=== PATIENT | male | born 1955 | race Caucasian/White ===

== ENCOUNTER 2016-09-19 11:02 | Inpatient (IN) | payer OTHER ==
[2016-09-19] VITALS (20 sets, daily range): BP systolic 57–143; BP diastolic 40–83; PULSE 69–107; RESP 16–22; TEMP 97.3–98.9; O2SAT 85–100
[~2016-09-19] VITALS: Ht 185.4 cm; Wt 92.9 kg
[2016-09-19] MEDS ORDERED: PRED10PA PO (11:30)
[2016-09-19] MEDS ORDERED: LEVA500T PO (11:30)
[2016-09-19] MEDS ORDERED: METO50TA PO (11:30)
[2016-09-19] MEDS ORDERED: ASPI1TAB69 PO (11:30)
[2016-09-19] MEDS ORDERED: AMLO5TAB2 PO (11:30)
--- NOTE | 2016-09-19 11:59 | PD ---
HPI Chief Complaint: Skin Problem Time Seen by Provider: 11:33 Travel History International Travel<30 days: No Contact w/Intl Traveler<30days: No Traveled to known affect area: No History of Present Illness HPI This 61-year-old male says he has been feeling nauseated since Friday. He's been feeling hot and cold and had no appetite. He has had hiccups. He has history of high blood pressure and atrial fibrillation. He is not on blood thinners. About 3 days ago he noted a swelling develop in the right buttock. IT has become larger and more painful. He does drink on a regular basis. He normally drinks about 4 beers a day but has not had any alcohol Friday. He also has not smoked since Friday. He called his doctor on Friday and was started on prednisone and Levaquin. He says he is feeling extremely weak PFSH Past Medical History Hx Anticoagulant Therapy: Yes (81MG ASA) Atrial Fibrillation: Yes COPD: Yes Hypertension: Yes Respiratory: Yes (COPD) Influenza Vaccination: No Past Surgical History Hysterectomy: Yes (HTN; A-FIB) Social History Alcohol Use: Yes (4 BEERS DAILY) Tobacco Use: Yes (2PPD) Substance Use: No Allergies-Medications (Allergen,Severity, Reaction): Coded Allergies: No Known Allergies (Unverified , 09/19/16) Reported Meds & Prescriptions Reported Meds & Active Scripts Active Reported Prednisone (21) 10 mg tab Dose Pack (Prednisone) 10 Mg Pack 10 Mg PO DIRECTED Levaquin (Levofloxacin) 500 Mg Tab 500 Mg PO DAILY Metoprolol Tartrate 50 Mg Tab 50 Mg PO BID Amlodipine (Amlodipine Besylate) 5 Mg Tab 5 Mg PO DAILY Aspirin 81 Mg Tabdr 81 Mg PO DAILY Review of Systems General / Constitutional: Positive: Fever, Chills HENT: No: Headaches Cardiovascular: No: Chest Pain or Discomfort, Palpitations Respiratory: No: Cough Gastrointestinal: Positive: Loss of Appetite Genitourinary: No: Urgency Musculoskeletal: No: Myalgias Skin: Positive Rash, Positive Lumps Neurologic: Positive: Weakness Physical Exam Narrative GENERAL: Well-developed male SKIN: Warm and dry. HEAD: Atraumatic. Normocephalic. EYES: Pupils equal and round. No scleral icterus. No injection or drainage. ENT: No nasal bleeding or discharge. Mucous membranes pink and moist. NECK: Trachea midline. No JVD. CARDIOVASCULAR: Regular rate and rhythm. No murmur appreciated. RESPIRATORY: No accessory muscle use. Clear to auscultation. Breath sounds equal bilaterally. GASTROINTESTINAL: Abdomen soft, non-tender, nondistended. Hepatic and splenic margins not palpable. There is a large area of erythema on the right buttock extending to the anal verge. Digital exam shows brown guaiac negative stool MUSCULOSKELETAL: No obvious deformities. No clubbing. No cyanosis. No edema. NEUROLOGICAL: Awake and alert. No obvious cranial nerve deficits. Motor grossly within normal limits. Normal speech. PSYCHIATRIC: Appropriate mood and affect; insight and judgment normal. Data Data Last Documented VS Vital Signs Date Time Temp Pulse Resp B/P Pulse Ox O2 Delivery O2 Flow Rate FiO2 09/19/16 14:13 98.3 91 20 69/43 98 Nasal Cannula 2 Orders Complete Blood Count With Diff (09/19/16 11:47) Comprehensive Metabolic Panel (09/19/16 11:47) Urinalysis - C+S If Indicated (09/19/16 11:47) Wound Culture And Gram Stain (09/19/16 11:47) Ct Abd/Pel W Iv Contrast(Rout) (09/19/16 11:47) Sodium Chlor 0.9% 1000 Ml Inj (Ns 1000 M (09/19/16 12:00) Ondansetron Inj (Zofran Inj) (09/19/16 12:00) Hydromorphone Pf Inj (Dilaudid Pf Inj) (09/19/16 12:00) Piperacil-Tazo 4.5 Gm Premix (Zosyn 4.5 (09/19/16 12:00) Blood Culture (09/19/16 11:47) Lactic Acid Sepsis Protocol (09/19/16 11:47) Lidocai-Epi 2%-1:100,000 Inj (Xylocaine- (09/19/16 12:00) Sodium Chlor 0.9% 1000 Ml Inj (Ns 1000 M (09/19/16 12:45) Metronidazole 500 Mg Inj (Flagyl 500 Mg (09/19/16 12:45) Ns + Kcl 40 Meq Inj (Ns + Kcl 40 Meq Inj (09/19/16 13:00) Iohexol 350 Inj (Omnipaque 350 Inj) (09/19/16 13:15) Clindamycin Inj (Cleocin Inj) (09/19/16 14:00) Sodium Chlor 0.9% 1000 Ml Inj (Ns 1000 M (09/19/16 14:00) Prothrombin Time / Inr (Pt) (09/19/16 14:09) Act Partial Throm Time (Ptt) (09/19/16 14:09) Consult Infectious Disease (09/19/16 ) Consult Colorectal Surgery (09/19/16 ) Norepinephrine-Dextrose Drip (Levophed-D (09/19/16 14:30) Admit Order (Ed Use Only) (09/19/16 14:24) Labs Laboratory Tests Test 09/19/16 12:00 White Blood Count 12.2 TH/MM3 Red Blood Count 4.81 MIL/MM3 Hemoglobin 14.6 GM/DL Hematocrit 43.9 % Mean Corpuscular Volume 91.2 FL Mean Corpuscular Hemoglobin 30.3 PG Mean Corpuscular Hemoglobin 33.2 % Concent Red Cell Distribution Width 12.5 % Platelet Count 203 TH/MM3 Mean Platelet Volume 8.4 FL Neutrophils (%) (Auto) 55.8 % Lymphocytes (%) (Auto) 5.7 % Monocytes (%) (Auto) 34.3 % Eosinophils (%) (Auto) 0.1 % Basophils (%) (Auto) 4.1 % Neutrophils # (Auto) 6.8 TH/MM3 Lymphocytes # (Auto) 0.7 TH/MM3 Monocytes # (Auto) 4.2 TH/MM3 Eosinophils # (Auto) 0.0 TH/MM3 Basophils # (Auto) 0.5 TH/MM3 CBC Comment AUTO DIFF Differential Total Cells 100 Counted Neutrophils % (Manual) 76 % Band Neutrophils % 8 % Lymphocytes % 5 % Monocytes % 11 % Neutrophils # (Manual) 10.2 TH/MM3 Differential Comment FINAL DIFF MANUAL Platelet Estimate NORMAL Platelet Morphology Comment NORMAL Sodium Level 138 MEQ/L Potassium Level 3.3 MEQ/L Chloride Level 101 MEQ/L Carbon Dioxide Level 26.1 MEQ/L Anion Gap 11 MEQ/L Blood Urea Nitrogen 22 MG/DL Creatinine 1.00 MG/DL Estimat Glomerular Filtration 76 ML/MIN Rate Random Glucose 150 MG/DL Lactic Acid Level 2.5 mmol/L Calcium Level 8.9 MG/DL Total Bilirubin 0.4 MG/DL Aspartate Amino Transf 115 U/L (AST/SGOT) Alanine Aminotransferase 81 U/L (ALT/SGPT) Alkaline Phosphatase 85 U/L Total Protein 6.8 GM/DL Albumin 1.9 GM/DL [facility] Medical Decision Making Medical Screen Exam Complete: Yes Emergency Medical Condition: Yes Medical Record Reviewed: Yes Differential Diagnosis Differential includes perirectal abscess, ischio rectal abscess Narrative Course White count is elevated at 12,000. His lactate level is 2.5. Case was discussed with Dr. Millan. An I&D was performed and a large amount of purulent material obtained. Antibiotics have been initiated. CT was obtained after the I&D was done. There is extensive induration soft tissue swelling and subcutaneous emphysema in the right perirectal posterior perineal region concerning for abscess and necrotizing fasciitis. No significant fluid collection. After the I&D was performed the patient dropped his blood pressure to 60/40. Aggressive IV fluids have been initiated. After 3 L his blood pressure remains low) 70/50. He'll be transferred to [place] intensive care emergently Procedures Procedure Narrative Verbal consent was obtained for incision and drainage. An area of the buttock was anesthetized with lidocaine with adrenaline. A 1.5 cm incision was made and a large amount of serosanguineous fluid was obtained. As much pus as possible was expressed from the wound. Wound was packed with a bottle of half- inch iodoform gauze. The drainage was foul-smelling. The patient tolerated the procedure well. After the patient's blood pressure dropped and he did not respond to initial fluid therapy and it was felt a central line will be necessary in the event that he needed pressors. This was discussed with the patient and he has given verbal and written consent. The right internal jugular area was cleaned thoroughly. Using gown and draped AND sterile technique a double-lumen central line was inserted in the right internal jugular vein. The patient tolerated the procedure well Diagnosis Primary Impression: Perirectal abscess Additional Impression: Sepsis Qualified Code: A41.9 - Sepsis, due to unspecified organism Admitting Information Admitting Physician Requests: it Jake Baron MD Sep 19, 2016 11:59
[2016-09-19] MEDS ORDERED: PIPERACIL-TAZO 4.5 GM PREMIX 100 ML IV ONE (12:00)
[2016-09-19] MEDS ORDERED: NOREPINEPHRINE-DEXTROSE DRIP 4 MG/250 ML BAG IV ONE (12:00)
[2016-09-19] MEDS ORDERED: LIDOCAINE 2%/EPINEPHrine 1:100,000 30ML MDV INFIL ONE (12:00)
[2016-09-19] MEDS ORDERED: HYDROmorphone HCL PF 1 MG/ML VIAL IV PUSH ONE (12:00)
[2016-09-19] MEDS ORDERED: SODIUM CHLOR 0.9% 1000 ML INJ 1,000 ML IV ONE ×4 (12:00→15:30)
[2016-09-19] MEDS ORDERED: PROPOFOL 200 MG/20 ML AMP IV ONE (12:00)
[2016-09-19] MEDS ORDERED: ONDANSETRON HCL 4 MG/2 ML VIAL IV PUSH ONE ×2 (12:00)
[2016-09-19 12:15] LABS: AUTOMATED NEUTROPHIL # 6.8 TH/MM3 (1.8-7.7); BASOPHIL # 0.5 TH/MM3 (0-0.2); BASOPHIL % 4.1 % (0.0-2.0); EOSINOPHIL % 0.1 % (0.0-4.0); HEMATOCRIT 43.9 % (39.0-51.0); LYMPH % 5.7 % (9.0-44.0); LYMPHOCYTE # 0.7 TH/MM3 (1.0-4.8); MEAN CELL VOLUME 91.2 FL (80.0-100.0); MEAN CORPUSCULAR HEMOGLOBIN 30.3 PG (27.0-34.0); MEAN CORPUSCULAR HGB CONC 33.2 % (32.0-36.0); MONO % 34.3 % (0.0-8.0); NEUT % 55.8 % (16.0-70.0); PLATELET COUNT 203 TH/MM3 (150-450); RED BLOOD COUNT 4.81 MIL/MM3 (4.50-5.90); RED CELL DISTRIBUTION WIDTH 12.5 % (11.6-17.2); WHITE BLOOD COUNT 12.2 TH/MM3 (4.0-11.0)
[2016-09-19 12:17] LABS: HEMO FLAGS AUTO DIFF
[2016-09-19 12:20] LABS: CHLORIDE 101 MEQ/L (98-107); POTASSIUM 3.3 MEQ/L (3.5-5.1); SODIUM (NA) 138 MEQ/L (136-145)
[2016-09-19 12:24] LABS: ANION GAP 11 MEQ/L (5-15); BICARBONATE 26.1 MEQ/L (21.0-32.0); BLOOD UREA NITROGEN 22 MG/DL (7-18)
[2016-09-19 12:27] LABS: ALT (GPT) 81 U/L (12-78); AST (GOT) 115 U/L (15-37); GLOMERULAR FILTRATION RATE 76 ML/MIN (>89)
[2016-09-19 12:29] LABS: TOTAL BILIRUBIN ADULT 0.4 MG/DL (0.2-1.0)
[2016-09-19 12:30] LABS: ALKALINE PHOSPHATASE 85 U/L (45-117)
[2016-09-19 12:43] LABS: BANDS 8 % (0-6); NEUTROPHIL # MANUAL DIFF 10.2 TH/MM3 (1.8-7.7); PLATELET ESTIMATE SMEAR NORMAL (NORMAL); PLATELET MORPHOLOGY NORMAL (NORMAL); POLYS (SEG NEUTROPHILS) 76 % (16-70); SCAN/DIFF FINAL DIFF MANUAL; WBC DIFF SAMPLE 100
[2016-09-19] MEDS ORDERED: metroNIDAZOLE 500 MG INJ 100 ML IV ONE (12:45)
[2016-09-19] MEDS ORDERED: NS + KCL 40 MEQ INJ 1,000 ML IV ONE (13:00)
[2016-09-19] MEDS ORDERED: IOHEXOL 350 MG/ML 10 ML VIAL (for RAD DIAG) IV ONE (13:15)
--- NOTE | 2016-09-19 13:27 | RADHPO ---
EXAM DATE/TIME: 09/19/2016 13:03 [facility] COMPARISON: No previous studies available for comparison. INDICATIONS : Nausea x 5 days. Right buttock pain and swelling x 3 days. Evaluate for abscess. IV CONTRAST: 85 cc Omnipaque 350 (iohexol) IV ORAL CONTRAST: No oral contrast ingested. RADIATION DOSE: 15.46 CTDIvol (mGy) MEDICAL HISTORY : Cardiovascular disease. Chronic obstructive pulmonary disease. SURGICAL HISTORY : None. ENCOUNTER: Initial ACUITY: 4 - 6 days PAIN SCALE: 10/10 LOCATION: Right buttock. TECHNIQUE: Volumetric scanning of the abdomen and pelvis was performed. Using automated exposure control and ad justment of the mA and/or kV according to patient size, radiation dose was kept as low as reasonably achievable to obtain optimal diagnostic quality images. FINDINGS: LOWER LUNGS: The visualized lower lungs are clear. LIVER: Decreased attenuation without lesion. There is no dilation of the biliary tree. No calcified gallst ones. SPLEEN: Normal size without lesion. PANCREAS: Within normal limits. KIDNEYS: Normal in size and shape. There is no mass, stone or hydronephrosis. ADRENAL GLANDS: Within normal limits. VASCULAR: There is no aortic aneurysm. BOWEL/MESENTERY: Diverticulosis without diverticulitis. There is no free intraperitoneal air or fluid. ABDOMINAL WALL: Within normal limits. RETROPERITONEUM: There is no lymphadenopathy. BLADDER: No wall thickening or mass. Mildly distended. REPRODUCTIVE: Within normal limits. INGUINAL: There is no lymphadenopathy or hernia. MUSCULOSKELETAL: Extensive induration and soft tissue swelling in the right perirectal/perineal region posteriorly. La rge amount of subcutaneous emphysema in the superficial soft tissues. No significant drainable fluid identified. This measures 8.9 x 3.5 cm. There is some minimal radiopaque density seen within the soft tissues. No communication/extension with the peritoneal cavity. CONCLUSION: 1. Extensive induration, soft tissue swelling and subcutaneous emphysema in the right perirectal/post erior perineal region concerning for abscess and necrotizing fasciitis. No significant fluid collecti on. Surgical consultation and aggressive antibiotic treatment recommended. 2. Hepatic steatosis, diverticulosis and distended urinary bladder. Samuel Craig MD on September 19, 2016 at 13:19 Board Certified Radiologist. This report was verified electronically.
[2016-09-19] MEDS ORDERED: CLINDAMYCIN INJ 900 MG in SODIUM CHLORIDE 0.9% INJ 100 ML IV ONE ×2 (13:45→14:00)
[2016-09-19 14:08] LABS: LACTIC ACID GHOST NOT REPORTABLE
[2016-09-19 14:58] LABS: BLOOD, URINE TRACE (NEG); GLUCOSE,URINE NEG (NEG); KETONE, URINE NEG (NEG)
[2016-09-19 15:11] LABS: NITRITE,URINE POS (NEG)
[2016-09-19 15:12] LABS: METHOD OF COLLECTION CLEAN CATCH; SQUAMOUS EPITHELIAL CELL URINE 0-5 /hpf (0-5); URINE COLOR YELLOW (YELLW/STRAW)
[2016-09-19 15:13] LABS: COMMENT (UR) CULTURE INDICATED; CULTURE IF INDICATED CULTURE INDICATED
[2016-09-19] MEDS: NOREPINEPHRINE-DEXTROSE DRIP 250 ML IV SCH (15:24)
[2016-09-19 15:57] LABS: APTT (PATIENT) 29.9 SEC (24.3-30.1); INTERNATIONAL NORMALIZED RATIO 1.1 RATIO; PROTHROMBIN TIME - PATIENT 12.6 SEC (9.8-11.6)
--- NOTE | 2016-09-19 16:13 | RADHPO ---
EXAM DATE/TIME: 09/19/2016 15:30 [facility] COMPARISON: No previous studies available for comparison. INDICATIONS : Post central line placement. MEDICAL HISTORY : Cardiovascular disease. Chronic obstructive pulmonary disease. SURGICAL HISTORY : None. ENCOUNTER: Initial ACUITY: 1 day PAIN SCORE: 6/10 LOCATION: Bilateral chest FINDINGS: The cardiac silhouette is enlarged in transverse diameter. There is prominence of the central pulmona ry vasculature with indistinct vascular margins compatible with vascular congestion but no evidence o f overt failure. No pleural effusions are identified. A right sided internal jugular vein catheter is in place without pneumothorax with its tip in the superior vena cava. CONCLUSION: 1. Cardiomegaly and findings of vascular congestion without overt failure. 2. Uncomplicated line placement. No evidence of pneumothorax. Aris Garcia MD on September 19, 2016 at 16:11 Board Certified Radiologist. This report was verified electronically.
[2016-09-19] MEDS ORDERED: LIDOCAINE HCL 2% 50 ML VIAL ONE (17:13)
[2016-09-19] MEDS ORDERED: FAMOTIDINE 20 MG/2 ML VIAL ONE (17:52)
[2016-09-19] MEDS: LACTATED RINGER'S 1000 ML INJ 1,000 ML IV SCH (18:13)
[2016-09-19] MEDS ORDERED: POTASSIUM PHOSPHATE INJ 30 MMOL in SODIUM CHLOR 0.9% 250 ML INJ 250 ML IV PRN (18:15)
[2016-09-19] MEDS ORDERED: MAGNESIUM SULFATE INJ 4 GM in SODIUM CHLORIDE 0.9% INJ 92 ML IV PRN (18:15)
[2016-09-19] MEDS ORDERED: ONDANSETRON HCL 4 MG/2 ML VIAL IV PRN (18:15)
[2016-09-19] MEDS ORDERED: MAGNESIUM SULFATE INJ 2 GM in SODIUM CHLORIDE 0.9% INJ 96 ML IV PRN (18:15)
[2016-09-19] MEDS ORDERED: POTASSIUM PHOSPHATE MONOBASIC 500 MG TAB PO PRN (18:15)
[2016-09-19] MEDS ORDERED: DEXTROSE 50% IN WATER 50 ML VIAL(D50) IV PUSH PRN (18:15)
[2016-09-19] MEDS ORDERED: SODIUM CHLORIDE 0.9% FLUSH 5 ML FLUSH IV FLUSH PRN (18:15)
[2016-09-19] MEDS ORDERED: MAGNESIUM OXIDE 400 MG TAB PO PRN (18:15)
[2016-09-19] MEDS ORDERED: RESP: ALBUTEROL 2.5 MG/IPRATROPIUM 0.5 MG NEB (PRN) INH (18:15)
[2016-09-19] MEDS ORDERED: SODIUM PHOSPHATE INJ 30 MMOL in SODIUM CHLOR 0.9% 250 ML INJ 240 ML IV PRN (18:15)
[2016-09-19] MEDS ORDERED: POTASSIUM PHOSPHATE MONOBASIC 500 MG TAB PO/TUBE PRN (18:15)
[2016-09-19] MEDS ORDERED: CHLORHEXIDINE GLUCONATE 2 % 1 PACK (2 CLOTHS) TOP PRN (18:15)
[2016-09-19] MEDS ORDERED: POTASSIUM CHLOR 20 MEQ PREMIX 100 ML IV PRN ×2 (18:15)
[2016-09-19] MEDS ORDERED: POTASSIUM CL 40 MEQ/30 ML LIQ UDC PO/TUBE PRN ×2 (18:15)
[2016-09-19] MEDS ORDERED: MISCELLANEOUS NURSING INFORMATION XX SCH (18:15)
--- NOTE | 2016-09-19 18:48 | HHI.HP ---
[facility] Service Critical Care Medicine Primary Care Physician JERRY Wick Admission Diagnosis SEPSIS Diagnosis: Chief Complaint: fatigue Travel History International Travel<30 Days: No Contact w/Intl Traveler <30 Da: No Traveled to Known Affected Are: No History of Present Illness This is a 61yM with h/o afib and htn, etoh abuse, who presents to the [facility] emergency ED with complaints of buttock pain as well as generalized fatigue, fever, chills, nausea, vomiting since Friday (x 5 days). He denied CP, or SOB. denied constipation, diarrhea, bloody stools or hematemesis. he states he has never had this problem before. In the emergency department, he was found to have a large right buttock fluctuant area. CT abd/pelvis is concerning for a necrotizing soft tissue infection. He was given 4L NS ivf and started on norepinephrine. A bedside incision and drainage was performed with significant amount of purulent drainage. The patient remained significantly hypotensive with an elevated lactate at 2.5. He was emergently transferred to the [facility] for emergent operative debridement of his soft tissue infection. When he arrived to the [facility] PACU, I immediately evaluated the patient. He was on NC o2. He was on levophed at 3mcg/min. He had 1L uop in his Bejarano catheter. He denied any additional complaints. Of note, prior to this acute illness, the patient could easily walk up 2 flights of stairs (>4 METs), no history of anesthesia complications, reassuring airway exam, NPO since yesterday morning. Review of Systems ROS Limitations: Clinical Condition Constitutional: COMPLAINS OF: Diaphoretic episodes, Fatigue, Fever, Chills Respiratory: DENIES: Wheezing, Hemoptysis, Sputum production, Shortness of breath Cardiovascular: DENIES: Chest pain, Palpitations, Syncope, Dyspnea on Exertion , PND, Lower Extremity Edema Gastrointestinal: COMPLAINS OF: Nausea, Vomiting, DENIES: Abdominal pain, Black stools, Bloody stools, Constipation, Diarrhea Neurologic: DENIES: Headache, Localized weakness Past Family Social History Allergies: Coded Allergies: No Known Allergies (Unverified , 09/19/16) Past Medical History htn afib Past Surgical History rotator cuff surgery Reported Medications Prednisone (21) 10 mg tab Dose Pack (Prednisone) 10 Mg Pack 10 Mg PO DIRECTED Levaquin (Levofloxacin) 500 Mg Tab 500 Mg PO DAILY Metoprolol Tartrate 50 Mg Tab 50 Mg PO BID Amlodipine (Amlodipine Besylate) 5 Mg Tab 5 Mg PO DAILY Aspirin 81 Mg Tabdr 81 Mg PO DAILY Active Ordered Medications See MAR Family History reviewed with the patient and found to be noncontributory to his acute illness. no history of anesthetic complications. Social History drinks 4-5 beers/day, smokes 2ppd. Physical Exam Vital Signs Vital Signs Date Time Temp Pulse Resp B/P Pulse Ox O2 Delivery O2 Flow Rate FiO2 09/19/16 17:00 94 Nasal Cannula 4 09/19/16 17:00 102 09/19/16 16:06 86 18 82/51 96 Nasal Cannula 2 09/19/16 15:56 100 18 87/62 97 Nasal Cannula 2 09/19/16 15:50 97 18 96/77 96 Nasal Cannula 2 09/19/16 15:37 92 20 59/42 94 Nasal Cannula 2 09/19/16 15:35 96 20 92/51 96 Room Air 09/19/16 15:16 94 20 64/47 Nasal Cannula 2 09/19/16 15:06 69 20 86/62 99 Nasal Cannula 2 09/19/16 14:56 98 20 83/66 100 Nasal Cannula 2 09/19/16 14:46 96 20 63/45 Nasal Cannula 2 09/19/16 14:45 96 20 57/49 96 Nasal Cannula 2 09/19/16 14:36 107 20 65/45 95 Nasal Cannula 2 09/19/16 14:28 100 20 65/40 98 Nasal Cannula 2 09/19/16 14:13 98.3 91 20 69/43 98 Nasal Cannula 2 09/19/16 14:07 93 20 69/43 85 Nasal Cannula 2 09/19/16 14:00 98 20 60/41 94 Room Air 09/19/16 13:57 98.3 20 61/43 Room Air 09/19/16 12:50 18 09/19/16 11:23 97.7 97 18 91/72 98 Room Air 09/19/16 11:03 97.3 97 22 99 Physical Exam GENERAL: Middle-aged male, lying in bed, acute distress due to pain HEENT: Normocephalic. Atraumatic. Pupils equally round and reactive. Membranes are dry. NECK: Neck veins are flat. Trachea is midline. Right IJ triple-lumen catheter with his dressing clean dry and intact. CHEST: Equal chest rise. Clear to auscultation bilaterally. CARDIOVASCULAR: Normal rate, irregularly irregular rhythm. No appreciable murmurs. ABDOMEN: soft, nontender, nondistended. No guarding. MUSCULOSKELETAL: There is a large area over the right buttock which is fluctuant and erythematous. it has a central area of drainage with foul smelling purulence. no peripheral edema, distal pulses 2+ NEUROLOGICAL: RASS 0. GCS 15. Follows commands all 4 extremities. Laboratory Laboratory Tests Test 09/19/16 09/19/16 09/19/16 12:00 14:46 15:37 White Blood Count 12.2 Red Blood Count 4.81 Hemoglobin 14.6 Hematocrit 43.9 Mean Corpuscular Volume 91.2 Mean Corpuscular Hemoglobin 30.3 Mean Corpuscular Hemoglobin 33.2 Concent Red Cell Distribution Width 12.5 Platelet Count 203 Mean Platelet Volume 8.4 Neutrophils (%) (Auto) 55.8 Lymphocytes (%) (Auto) 5.7 Monocytes (%) (Auto) 34.3 Eosinophils (%) (Auto) 0.1 Basophils (%) (Auto) 4.1 Neutrophils # (Auto) 6.8 Lymphocytes # (Auto) 0.7 Monocytes # (Auto) 4.2 Eosinophils # (Auto) 0.0 Basophils # (Auto) 0.5 CBC Comment AUTO DIFF Differential Total Cells 100 Counted Neutrophils % (Manual) 76 Band Neutrophils % 8 Lymphocytes % 5 Monocytes % 11 Neutrophils # (Manual) 10.2 Differential Comment FINAL DIFF MANUAL Platelet Estimate NORMAL Platelet Morphology Comment NORMAL Sodium Level 138 Potassium Level 3.3 Chloride Level 101 Carbon Dioxide Level 26.1 Anion Gap 11 Blood Urea Nitrogen 22 Creatinine 1.00 Estimat Glomerular Filtration 76 Rate Random Glucose 150 Lactic Acid Level 2.5 1.5 Calcium Level 8.9 Magnesium Level 2.1 Total Bilirubin 0.4 Aspartate Amino Transf 115 (AST/SGOT) Alanine Aminotransferase 81 (ALT/SGPT) Alkaline Phosphatase 85 Total Protein 6.8 Albumin 1.9 Urine Collection Type CLEAN CATCH Urine Color YELLOW Urine Turbidity CLEAR Urine pH 6.0 Urine Specific [place] 1.031 Urine Protein TRACE Urine Glucose (UA) NEG Urine Ketones NEG Urine Occult Blood TRACE Urine Nitrite POS Urine Bilirubin NEG Urine Leukocyte Esterase NEG Urine RBC 4-9 Urine Squamous Epithelial 0-5 Cells Urine Bacteria Microscopic Urinalysis Comment CULTURE INDICATED Urine Collection Time 14:46 Prothrombin Time 12.6 Prothromb Time International 1.1 Ratio Activated Partial 29.9 Thromboplast Time Date/Time Procedure Status Source Growth 09/19/16 14:46 Urine Culture Received Urine Clean Catch Pending 09/19/16 12:40 Gram Stain Received Wound Buttock Pending 09/19/16 12:40 Wound Culture Received Wound Buttock Pending 09/19/16 12:05 Aerobic Blood Culture Received Blood Peripheral Pending 09/19/16 12:05 Anaerobic Blood Culture Received Blood Peripheral Pending Result Diagram: 09/19/16 1200 09/19/16 1200 Assessment and Plan Assessment and Plan Assessment: This is a 61-year-old male with history of alcohol use, tobacco use , hypertension, atrial fibrillation now with a necrotizing soft tissue infection of the right buttock. I agree he will need operative intervention. I placed a right radial arterial line, please see separate procedure note for details. He is still on significant vasopressors and remains in septic shock. He may very well get much sicker before he gets better. We will continue an upper coverage, including clindamycin for toxin production, and will provide supportive care. He remains very critically ill this time. Active problems: Alcohol dependence Lactic acidosis Septic shock Acute protein calorie malnutritionmild Necrotizing soft tissue infection, bereket-rectal. Plan: IV thiamine, multivitamin daily Watch for signs of withdrawal LR maintenance fluids at 150 cc an hour Lactate is currently clearing Trend every hour urine outputs Daily CBC, BMP Follow-up cultures of blood, sputum, urine, wound Continue Zosyn and clindamycin empirically Nothing by mouth for impending procedure Operative intervention for debridement. Continue norepinephrine for goal map greater than 65 Protonix IV for GI prophylaxis SCDs and subcutaneous heparin for DVT prophylaxis This patient remains critically ill with one or more organ systems which are or may become a threat to life. I have spent in excess of 37 minutes discontinuously in the care and management of this patient. This time is exclusive of procedures, and includes, but is not limited to, evaluation of the patient, review of the medical record, discussions with family, consultants , nursing staff, or respiratory therapy, and documentation in the medical record. Code Status Full Code Bran Rossi MD Sep 19, 2016 18:48
--- NOTE | 2016-09-19 18:49 | PD.PROCEDR ---
Procedure Note Procedure Procedure: Arterial Line Placement Right radial arterial line placement Diagnosis: Septic shock Indications: Need for beat to beat hemodynamic monitoring Consent: Verbal Consent was obtained Description of the Procedure: The right wrist was prepped and draped sterilely. 1% lidocaine was used for local anesthesia. The pulse was located and a needle was advanced into the artery. A 20 gauge, 3.5 cm catheter was advanced into the artery using a modified Seldinger technique. The catheter was sutured to the skin and a sterile dressing was applied. The catheter was connected to a pressure transducer and an arterial waveform was noted. There were no immediate complications noted. There was minimal EBL. I personally performed the procedure. Bran Rossi MD Sep 19, 2016 18:49
[2016-09-19] MEDS ORDERED: fentaNYL CITRATE 250 MCG/5 ML AMP ONE (19:23)
[2016-09-19] MEDS: PIPERACIL-TAZO 4.5 GM PREMIX 100 ML IV SCH (20:00)
[2016-09-19] MEDS: CLINDAMYCIN INJ 900 MG in SODIUM CHLORIDE 0.9% INJ 100 ML IV SCH (20:00)
[2016-09-19] MEDS ORDERED: MULTIVITAMIN INJ 10 ML, THIAMINE INJ 100 MG, FOLIC ACID INJ 1 MG in SODIUM CHLOR 0.45% ... IV ONE (20:00)
[2016-09-19] MEDS ORDERED: DO NOT ADM ANY ANTICOAGULANT DRUGS XX PRN (20:45)
[2016-09-19] MEDS ORDERED: DOCUSATE SODIUM 50 MG/SENNA 8.6 MG TAB PO SCH (21:00)
[2016-09-19] MEDS: SODIUM CHLORIDE 0.9% FLUSH 5 ML FLUSH IV FLUSH SCH (21:00)
[2016-09-19] MEDS ORDERED: HEPARIN SODIUM - SQ 10,000 UNITS/ML VIAL SQ SCH (22:00)
[2016-09-19] MEDS: RESP: ALBUTEROL 2.5 MG/IPRATROPIUM 0.5 MG NEB (SCH) INH (22:00)
[2016-09-20] VITALS (15 sets, daily range): BP systolic 83–142; BP diastolic 49–87; PULSE 88–125; RESP 17–27; TEMP 97.4–98.3; O2SAT 89–97
[2016-09-20] MEDS: LACTATED RINGER'S 1000 ML INJ 1,000 ML IV SCH ×4 (00:53→20:51)
[2016-09-20] MEDS: THIAMINE INJ 100 MG in SODIUM CHLORIDE 0.9% INJ 100 ML IV SCH (01:45)
[2016-09-20] MEDS: CHLORHEXIDINE GLUCONATE 2 % 1 PACK (2 CLOTHS) TOP SCH (02:36)
[2016-09-20] MEDS: PIPERACIL-TAZO 4.5 GM PREMIX 100 ML IV SCH ×4 (02:36→20:47)
[2016-09-20] MEDS: CLINDAMYCIN INJ 900 MG in SODIUM CHLORIDE 0.9% INJ 100 ML IV SCH ×2 (02:36→09:19)
[2016-09-20] MEDS: RESP: ALBUTEROL 2.5 MG/IPRATROPIUM 0.5 MG NEB (SCH) INH ×4 (04:11→22:14)
[2016-09-20 05:51] LABS: BICARBONATE 22.5 MEQ/L (21.0-32.0); POTASSIUM 3.3 MEQ/L (3.5-5.1)
[2016-09-20 05:54] LABS: HEMATOCRIT 34.5 % (39.0-51.0); MEAN CELL VOLUME 91.8 FL (80.0-100.0); MEAN CORPUSCULAR HEMOGLOBIN 30.7 PG (27.0-34.0); MEAN CORPUSCULAR HGB CONC 33.5 % (32.0-36.0); PLATELET COUNT 195 TH/MM3 (150-450); RED BLOOD COUNT 3.76 MIL/MM3 (4.50-5.90); REVIEW FLAG FINAL; WHITE BLOOD COUNT 14.1 TH/MM3 (4.0-11.0)
[2016-09-20] MEDS: INSULIN NovoLIN REGULAR SUPPLEMENTAL SCALE SQ SCH ×4 (06:00→17:54)
[2016-09-20] MEDS: POTASSIUM CHLOR 40 MEQ PREMIX 100 ML IV PRN ×3 (06:41→20:48)
[2016-09-20] MEDS: PANTOPRAZOLE SODIUM 40 MG VIAL IV SCH (09:19)
[2016-09-20] MEDS: SODIUM CHLORIDE 0.9% FLUSH 5 ML FLUSH IV FLUSH SCH ×2 (09:20→20:47)
[2016-09-20] MEDS: MULTIVITAMIN TAB PO SCH (09:20)
--- NOTE | 2016-09-20 09:39 | PD.CONS ---
History of Present Illness Service Infectious disease Consult Requested By Dr Rossi Reason for Consult Evaluate patient with necrotizing fasciitis Primary Care Physician JERRY Wick Diagnoses: History of Present Illness Patient seen and examined. Records reviewed. Patient is a 61-year-old male presented to the hospital for further evaluation of swelling pain in his right buttock. He started feeling sick around September 15 when he had some myalgias, generalized malaise, nausea and having subjective fevers and chills. The following day he had 2 episodes of vomiting, and he continued to have the symptoms. On September 17, his noted a red and swollen area in his right buttock and there was a little bit of opening and it was thought that it might be an abrasion. He wasn't really having any significant pain at that time, but that night he started having some burning sensation. The following day it started increasing in size, and he apparently called his primary care physician and some prescription was called. He was not improving, and he presented to [facility] ED on the day of admission, and there was a large fluctuant area that was found. CT of the abdomen and pelvis is showed some findings concerning for necrotizing infection. He was transferred to the [facility] hospital, and underwent emergency surgery by colorectal surgery. He is on levophed. He is afebrile. His WBC is elevated. He is complaining of pain in the right buttock. He has not had any further nausea or vomiting. Denies any abdominal pain. He has not had any problem with his bowels as far as episodes of constipation or diarrhea. He denies any urinary complaint. He denies any prior history of boils. Patient currently is on Zosyn. Infectious disease consultation has been requested to assist with evaluation and treatment of his necrotizing fasciitis. Review of Systems Constitutional: COMPLAINS OF: Fever, Chills, Change in appetite Eyes: DENIES: Eye pain Ears, nose, mouth, throat: DENIES: Nasal discharge, Oral lesions, Throat pain, Ear Pain, Sinus Pain, Odynophagia Respiratory: DENIES: Cough, Wheezing, Shortness of breath Cardiovascular: DENIES: Chest pain, Palpitations Gastrointestinal: COMPLAINS OF: Nausea, Vomiting, DENIES: Abdominal pain, Constipation, Diarrhea, Difficulty Swallowing Genitourinary: DENIES: Urgency, Hematuria, Dysuria Musculoskeletal: COMPLAINS OF: Muscle aches, DENIES: Joint pain, Joint Swelling Integumentary: DENIES: Rash Immunologic/allergic: DENIES: Urticaria Neurologic: DENIES: Headache, Localized weakness Psychiatric: DENIES: Anxiety, Confusion Past Family Social History Allergies: Coded Allergies: No Known Allergies (Unverified , 09/19/16) Past Medical History Hypertension Atrial fibrillation Past Surgical History Rotator cuff surgery Active Ordered Medications Potassium Thiamine MVI Zofran Protonix Insulin Magnesium Tylenol Albuterol Clindamycin Zosyn Levophed Social History Patient is Originally from [place], down here in [place] in the last 4 years Smokes 2 packs per day of cigarettes Drinks beer 4 per day Denies illicit drug use Physical Exam Vital Signs Vital Signs Date Time Temp Pulse Resp B/P Pulse Ox O2 Delivery O2 Flow Rate FiO2 09/20/16 06:00 88 09/20/16 04:15 94 Nasal Cannula 4.00 09/20/16 04:00 91 09/20/16 04:00 97.4 91 19 122/73 93 87/55 09/20/16 02:00 91 09/20/16 00:00 93 09/20/16 00:00 97.9 93 17 139/87 93 104/58 09/19/16 22:00 98.9 95 16 143/83 103/59 09/19/16 21:20 92 18 119/74 95 Nasal Cannula 4 106/63 09/19/16 20:30 118 18 126/73 95 Nasal Cannula 4 09/19/16 20:15 118 18 137/80 95 Nasal Cannula 4 09/19/16 20:00 101 18 141/91 95 Nasal Cannula 4 110/68 09/19/16 19:50 98.5 118 18 149/83 95 Nasal Cannula 4 09/19/16 17:49 98.7 102 20 92/56 94 09/19/16 17:45 104 18 86/48 94 09/19/16 17:40 104 18 86/47 94 09/19/16 17:30 101 18 95/56 95 09/19/16 17:15 107 20 98/75 94 09/19/16 17:00 94 Nasal Cannula 4 09/19/16 17:00 102 09/19/16 17:00 98.9 102 20 106/71 94 09/19/16 16:06 86 18 82/51 96 Nasal Cannula 2 09/19/16 15:56 100 18 87/62 97 Nasal Cannula 2 09/19/16 15:50 97 18 96/77 96 Nasal Cannula 2 09/19/16 15:37 92 20 59/42 94 Nasal Cannula 2 09/19/16 15:35 96 20 92/51 96 Room Air 09/19/16 15:16 94 20 64/47 Nasal Cannula 2 09/19/16 15:06 69 20 86/62 99 Nasal Cannula 2 09/19/16 14:56 98 20 83/66 100 Nasal Cannula 2 09/19/16 14:46 96 20 63/45 Nasal Cannula 2 09/19/16 14:45 96 20 57/49 96 Nasal Cannula 2 09/19/16 14:36 107 20 65/45 95 Nasal Cannula 2 09/19/16 14:28 100 20 65/40 98 Nasal Cannula 2 09/19/16 14:13 98.3 91 20 69/43 98 Nasal Cannula 2 09/19/16 14:07 93 20 69/43 85 Nasal Cannula 2 09/19/16 14:00 98 20 60/41 94 Room Air 09/19/16 13:57 98.3 20 61/43 Room Air 09/19/16 12:50 18 09/19/16 11:23 97.7 97 18 91/72 98 Room Air 09/19/16 11:03 97.3 97 22 99 Physical Exam GENERAL: This is a well-nourished, well-developed male, awake and alert, not toxic appearing, not in respiratory distress. SKIN: Warm and dry. No generalized rash or ecchymosis. HEAD: Atraumatic. Normocephalic. No temporal or scalp tenderness. EYES: [place] conjunctivae, no petechia or hemorrhage. Pupils equal round and reactive. Extraocular movements full and intact. No scleral icterus. No injection or drainage. ENT: Nose without bleeding, or purulent drainage. Moist oral mucosa. Throat without erythema, or exudate. Uvula midline. Airway patent. NECK: Trachea midline. No JVD or lymphadenopathy. Supple, nontender, no meningeal signs. CARDIOVASCULAR: Irregular rate and rhythm without murmurs, gallops, or rubs. RESPIRATORY: Clear to auscultation. Breath sounds equal bilaterally. No wheezes , rales, or rhonchi. GASTROINTESTINAL: Abdomen soft, non-tender, nondistended. Bowel sounds are present and normoactive. No organomegaly. No guarding. No rebound tenderness. MUSCULOSKELETAL: Extremities without clubbing, cyanosis, or edema. No joint effusion, or edema noted. Good range of motion. No calf tenderness. Negative Homans sign bilaterally. NEUROLOGICAL: Awake and alert. Cranial nerves II through XII intact. Motor and sensory grossly within normal limits. Five out of 5 muscle strength in all muscle groups. Normal speech. : No abnormality seen in genital region, BACK: Open wound in buttock with packing, goes some to the perineal area, (+) odor LINE: PIV no evidence of infection Laboratory Laboratory Tests Test 09/19/16 09/19/16 09/19/16 09/19/16 12:00 14:46 15:37 22:00 White Blood Count 12.2 Red Blood Count 4.81 Hemoglobin 14.6 Hematocrit 43.9 Mean Corpuscular Volume 91.2 Mean Corpuscular Hemoglobin 30.3 Mean Corpuscular Hemoglobin 33.2 Concent Red Cell Distribution Width 12.5 Platelet Count 203 Mean Platelet Volume 8.4 Neutrophils (%) (Auto) 55.8 Lymphocytes (%) (Auto) 5.7 Monocytes (%) (Auto) 34.3 Eosinophils (%) (Auto) 0.1 Basophils (%) (Auto) 4.1 Neutrophils # (Auto) 6.8 Lymphocytes # (Auto) 0.7 Monocytes # (Auto) 4.2 Eosinophils # (Auto) 0.0 Basophils # (Auto) 0.5 CBC Comment AUTO DIFF Differential Total Cells 100 Counted Neutrophils % (Manual) 76 Band Neutrophils % 8 Lymphocytes % 5 Monocytes % 11 Neutrophils # (Manual) 10.2 Differential Comment FINAL DIFF MANUAL Platelet Estimate NORMAL Platelet Morphology Comment NORMAL Sodium Level 138 Potassium Level 3.3 Chloride Level 101 Carbon Dioxide Level 26.1 Anion Gap 11 Blood Urea Nitrogen 22 Creatinine 1.00 Estimat Glomerular Filtration 76 Rate Random Glucose 150 Lactic Acid Level 2.5 1.5 Calcium Level 8.9 Magnesium Level 2.1 Total Bilirubin 0.4 Aspartate Amino Transf 115 (AST/SGOT) Alanine Aminotransferase 81 (ALT/SGPT) Alkaline Phosphatase 85 Total Protein 6.8 Albumin 1.9 Urine Collection Type CLEAN CATCH Urine Color YELLOW Urine Turbidity CLEAR Urine pH 6.0 Urine Specific [place] 1.031 Urine Protein TRACE Urine Glucose (UA) NEG Urine Ketones NEG Urine Occult Blood TRACE Urine Nitrite POS Urine Bilirubin NEG Urine Leukocyte Esterase NEG Urine RBC 4-9 Urine Squamous Epithelial 0-5 Cells Urine Bacteria Microscopic Urinalysis Comment CULTURE INDICATED Urine Collection Time 14:46 Prothrombin Time 12.6 Prothromb Time International 1.1 Ratio Activated Partial 29.9 Thromboplast Time Nasal Screen MRSA (PCR) NEGATIVE Test 09/20/16 03:40 White Blood Count 14.1 Red Blood Count 3.76 Hemoglobin 11.6 Hematocrit 34.5 Mean Corpuscular Volume 91.8 Mean Corpuscular Hemoglobin 30.7 Mean Corpuscular Hemoglobin 33.5 Concent Red Cell Distribution Width 13.0 Platelet Count 195 Mean Platelet Volume 8.5 Sodium Level 141 Potassium Level 3.3 Chloride Level 109 Carbon Dioxide Level 22.5 Anion Gap 10 Blood Urea Nitrogen 15 Creatinine 0.73 Estimat Glomerular Filtration 110 Rate Random Glucose 127 Calcium Level 7.7 Date/Time Procedure Status Source Growth 09/19/16 14:46 Urine Culture Received Urine Clean Catch Pending 09/19/16 12:40 Gram Stain Received Wound Buttock Pending 09/19/16 12:40 Wound Culture Received Wound Buttock Pending 09/19/16 12:05 Aerobic Blood Culture Received Blood Peripheral Pending 09/19/16 12:05 Anaerobic Blood Culture Received Blood Peripheral Pending Result Diagram: 09/20/16 0340 09/20/16 0340 Imaging RADIOLOGY STUDIES/FILMS REVIEWED Chest X-Ray 09/19/16 1518 Signed Impressions: Service Date/Time: September 15:30 - CONCLUSION: 1. Cardiomegaly and findings of vascular congestion without overt failure. 2. Uncomplicated line placement. No evidence of pneumothorax. Aris Garcia MD Abdomen/Pelvis CT 09/19/16 1147 Signed Impressions: Service Date/Time: September 13:03 - CONCLUSION: 1. Extensive induration, soft tissue swelling and subcutaneous emphysema in the right perirectal/posterior perineal region concerning for abscess and necrotizing fasciitis. No significant fluid collection. Surgical consultation and aggressive antibiotic treatment recommended. 2. Hepatic steatosis, diverticulosis and distended urinary bladder. Samuel Craig MD Assessment and Plan Assessment and Plan IMPRESSION Sepsis on presentation with shock due to necrotizing infection Necrotizing infection R buttock/perineum, S/P debridment - usually polymicrobial Atrial fibrillation RECOMMENDATION Continue Zosyn Stop Clindamycin Wound care per CRS, further debridement per surgery Follow C/S BP support Resuscitation Monitor progress I will follow along with you Thank you for this consultation Discussed Condition With D/W RN Explained plan to patient Patricia Neal MD Sep 20, 2016 09:39
[2016-09-20] MEDS ORDERED: DEXMEDETOMIDINE INJ 1,000 MCG in SODIUM CHLORIDE 0.9% INJ 240 ML IV SCH (09:45)
[2016-09-20] MEDS ORDERED: PNEUMOCOCCAL POLYVALENT INJ 25 MCG/0.5 ML SYR IM ONE (10:00)
[2016-09-20] MEDS ORDERED: INFLUENZA VIRUS VACCINE (QUADRIVALENT) 0.5 ML SYR IM ONE (10:00)
--- NOTE | 2016-09-20 13:42 | EKG ---
Date Performed: 09/19/2016 Time Performed: 17:21:09 PTAGE: 61 years EKG: ATRIAL FIBRILLATION WITH RAPID VENTRICULAR RESPONSE ABNORMAL RHYTHM ECG NO PREVIOUS TRACING DOCTOR: Ayaka Ramírez Interpretating Date/Time 09/20/2016 13:35:33
[2016-09-20] MEDS: NOREPINEPHRINE-DEXTROSE DRIP 250 ML IV SCH (16:43)
--- NOTE | 2016-09-20 20:04 | HHI.CCPN ---
Subjective Remarks/Hospital Course 09/20: This is a 61yM with h/o afib and htn, etoh abuse, who presents to the [facility] ED with complaints of buttock pain as well as generalized fatigue, fever, chills, nausea, vomiting since Friday (x 5 days). He denied CP, or SOB. denied constipation, diarrhea, bloody stools or hematemesis. he states he has never had this problem before. In the emergency department, he was found to have a large right buttock fluctuant area. CT abd/pelvis is concerning for a necrotizing soft tissue infection. He was given 4L NS ivf and started on norepinephrine. A bedside incision and drainage was performed with significant amount of purulent drainage. The patient remained significantly hypotensive with an elevated lactate at 2.5. He was emergently transferred to the [facility] for emergent operative debridement of his soft tissue infection. When he arrived to the [facility] PACU, Dr. Rossi immediately evaluated the patient. He was on NC o2. He was on levophed at 3mcg/min. He had 1L uop in his Bejarano catheter. He denied any additional complaints. 09/21: Underwent debridement of right gluteal region with suspected necrotizing fasciitis on 09/[address] Millan under general anesthesia. Remains on Levophed for pressor support. On nasal cannula currently. Objective Vital Signs Date Time Temp Pulse Resp B/P Pulse Ox O2 Delivery O2 Flow Rate FiO2 09/20/16 18:00 125 09/20/16 16:00 97.8 27 105/70 93 94/63 09/20/16 11:02 Nasal Cannula 5.00 Intake and Output 09/19/16 09/19/16 09/20/16 08:00 16:00 00:00 Intake Total 3100 ml 3043 ml Output Total 1050 ml 2060 ml Balance 2050 ml 983 ml Result Diagram: 09/20/16 0340 09/20/16 1743 Objective Remarks GENERAL: Middle-aged male, lying in bed, not in any acute distress HEENT: Normocephalic. Atraumatic. Pupils equally round and reactive. Membranes are dry. NECK: No JVD. Trachea is midline. Right IJ triple-lumen catheter with his dressing clean dry and intact. CHEST: Equal chest rise. Clear to auscultation bilaterally. CARDIOVASCULAR: Normal rate, irregularly irregular rhythm. No appreciable murmurs. ABDOMEN: soft, nontender, nondistended. No guarding. MUSCULOSKELETAL: Packing over right buttock surgical site in place. no peripheral edema, distal pulses 2+ NEUROLOGICAL: Awake alert oriented 3, grossly nonfocal A/P Assessment and Plan Assessment: This is a 61-year-old male with history of alcohol use, tobacco use , hypertension, atrial fibrillation now with a necrotizing soft tissue infection of the right buttock, septic shock. Active problems: Alcohol dependence Lactic acidosis Septic shock Acute protein calorie malnutritionmild Necrotizing soft tissue infection, bereket-rectal. Plan: IV thiamine, multivitamin daily Watch for signs of withdrawal LR maintenance fluids at 150 cc an hour Lactate is currently clearing Trend every hour urine outputs Daily CBC, BMP Follow-up cultures of blood, sputum, urine, wound Continue Zosyn and clindamycin empirically. ID consulted and following Nothing by mouth for impending procedure Status post Operative intervention - debridement on 09/[address] Millan. Continue norepinephrine for goal map greater than 65 Protonix IV for GI prophylaxis SCDs and subcutaneous heparin for DVT prophylaxis Patient remains in septic shock on Levophed. Condition critical Time spent on critical care excluding procedures 35 minutes Ramses Young MD Sep 20, 2016 20:03
--- NOTE | 2016-09-20 22:52 | HHI.PR ---
Subjective Remarks C/R Surg POD # 1 afebrile, VSS - on pressors UO good Objective - Vital Signs Date Time Temp Pulse Resp B/P Pulse Ox O2 Delivery O2 Flow Rate FiO2 09/20/16 22:14 96 Nasal Cannula 4.00 09/20/16 22:00 97 09/20/16 20:00 98.3 21 106/77 87/63 Result Diagram: 09/20/16 0340 09/20/16 1743 Objective Remarks PE alert Abd - soft, non-tender Rectal - wound clean, little discharge, clean base A/P Assessment and Plan Imp: stable post-op wean pressors wound care start PO Rafiq Millan MD Sep 20, 2016 22:52
[2016-09-21] VITALS (14 sets, daily range): BP systolic 92–124; BP diastolic 57–90; PULSE 74–118; RESP 27–29; TEMP 97.6–98.3; O2SAT 92–96
[2016-09-21] MEDS: PIPERACIL-TAZO 4.5 GM PREMIX 100 ML IV SCH ×4 (02:03→19:55)
[2016-09-21] MEDS: THIAMINE INJ 100 MG in SODIUM CHLORIDE 0.9% INJ 100 ML IV SCH (02:36)
[2016-09-21] MEDS: RESP: ALBUTEROL 2.5 MG/IPRATROPIUM 0.5 MG NEB (SCH) INH ×4 (03:50→21:19)
[2016-09-21] MEDS: CHLORHEXIDINE GLUCONATE 2 % 1 PACK (2 CLOTHS) TOP SCH ×2 (04:00→20:47)
[2016-09-21 05:10] LABS: HEMATOCRIT 35.2 % (39.0-51.0); MEAN CELL VOLUME 90.5 FL (80.0-100.0); MEAN CORPUSCULAR HEMOGLOBIN 30.9 PG (27.0-34.0); MEAN CORPUSCULAR HGB CONC 34.2 % (32.0-36.0); PLATELET COUNT 243 TH/MM3 (150-450); RED BLOOD COUNT 3.89 MIL/MM3 (4.50-5.90); RED CELL DISTRIBUTION WIDTH 13.5 % (11.6-17.2); REVIEW FLAG FINAL; WHITE BLOOD COUNT 11.3 TH/MM3 (4.0-11.0)
[2016-09-21] MEDS: LACTATED RINGER'S 1000 ML INJ 1,000 ML IV SCH ×3 (05:23→15:40)
[2016-09-21 05:42] LABS: BICARBONATE 22.9 MEQ/L (21.0-32.0); POTASSIUM 3.4 MEQ/L (3.5-5.1)
[2016-09-21] MEDS: INSULIN NovoLIN REGULAR SUPPLEMENTAL SCALE SQ SCH ×5 (06:00→22:19)
[2016-09-21] MEDS: POTASSIUM CHLOR 40 MEQ PREMIX 100 ML IV PRN (06:37)
--- NOTE | 2016-09-21 07:52 | HHI.CCPN ---
Subjective Remarks/Hospital Course 09/19: This is a 61yM with h/o afib and htn, etoh abuse, who presents to the [facility] ED with complaints of buttock pain as well as generalized fatigue, fever, chills, nausea, vomiting since Friday (x 5 days). He denied CP, or SOB. denied constipation, diarrhea, bloody stools or hematemesis. he states he has never had this problem before. In the emergency department, he was found to have a large right buttock fluctuant area. CT abd/pelvis is concerning for a necrotizing soft tissue infection. He was given 4L NS ivf and started on norepinephrine. A bedside incision and drainage was performed with significant amount of purulent drainage. The patient remained significantly hypotensive with an elevated lactate at 2.5. He was emergently transferred to the [facility] for emergent operative debridement of his soft tissue infection. When he arrived to the [facility] PACU, Dr. Rossi immediately evaluated the patient. He was on NC o2. He was on levophed at 3mcg/min. He had 1L uop in his Bejarano catheter. He denied any additional complaints. 09/20: Underwent debridement of right gluteal region with suspected necrotizing fasciitis on 09/[address] Millan under general anesthesia. Remains on Levophed for pressor support. On nasal cannula currently. 09/21 Patient is on 4L oxygen with god sats. Afebrile. On Levophed 3 mics. Objective Vital Signs Date Time Temp Pulse Resp B/P Pulse Ox O2 Delivery O2 Flow Rate FiO2 09/21/16 06:00 113 09/21/16 04:00 97.6 29 111/73 92 111/65 09/20/16 22:14 Nasal Cannula 4.00 Intake and Output 09/20/16 09/20/16 09/21/16 08:00 16:00 00:00 Intake Total 1410 ml 2238 ml 1794 ml Output Total 730 ml 725 ml 540 ml Balance 680 ml 1513 ml 1254 ml Result Diagram: 09/21/16 0500 09/21/16 0500 Other Results Laboratory Tests Test 09/20/16 09/21/16 17:43 05:00 Potassium Level 2.9 MEQ/L 3.4 MEQ/L White Blood Count 11.3 TH/MM3 Red Blood Count 3.89 MIL/MM3 Hemoglobin 12.0 GM/DL Hematocrit 35.2 % Mean Corpuscular Volume 90.5 FL Mean Corpuscular Hemoglobin 30.9 PG Mean Corpuscular Hemoglobin 34.2 % Concent Red Cell Distribution Width 13.5 % Platelet Count 243 TH/MM3 Mean Platelet Volume 8.3 FL Sodium Level 140 MEQ/L Chloride Level 109 MEQ/L Carbon Dioxide Level 22.9 MEQ/L Anion Gap 8 MEQ/L Blood Urea Nitrogen 11 MG/DL Creatinine 0.72 MG/DL Estimat Glomerular Filtration 112 ML/MIN Rate Random Glucose 103 MG/DL Calcium Level 8.0 MG/DL Albumin 1.5 GM/DL Imaging Last Impressions Chest X-Ray 09/19/16 1518 Signed Impressions: Service Date/Time: September 15:30 - CONCLUSION: 1. Cardiomegaly and findings of vascular congestion without overt failure. 2. Uncomplicated line placement. No evidence of pneumothorax. Aris Garcia MD Abdomen/Pelvis CT 09/19/16 1147 Signed Impressions: Service Date/Time: September 13:03 - CONCLUSION: 1. Extensive induration, soft tissue swelling and subcutaneous emphysema in the right perirectal/posterior perineal region concerning for abscess and necrotizing fasciitis. No significant fluid collection. Surgical consultation and aggressive antibiotic treatment recommended. 2. Hepatic steatosis, diverticulosis and distended urinary bladder. Samuel Craig MD Objective Remarks GENERAL: Middle-aged male, lying in bed, not in any acute distress HEENT: Normocephalic. Atraumatic. Pupils equally round and reactive. Membranes are dry. NECK: No JVD. Trachea is midline. Right IJ triple-lumen catheter with his dressing clean dry and intact. CHEST: Equal chest rise. Clear to auscultation bilaterally. CARDIOVASCULAR: Normal rate, irregularly irregular rhythm. No appreciable murmurs. ABDOMEN: soft, nontender, nondistended. No guarding. MUSCULOSKELETAL: Packing over right buttock surgical site in place. no peripheral edema, distal pulses 2+ NEUROLOGICAL: Awake alert oriented 3, grossly nonfocal A/P Assessment and Plan Assessment: This is a 61-year-old male with history of alcohol use, tobacco use , hypertension, atrial fibrillation now with a necrotizing soft tissue infection of the right buttock, septic shock. Active problems: Alcohol dependence Lactic acidosis- Resolved Septic shock Acute protein calorie malnutritionmild Necrotizing soft tissue infection, bereket-rectal. Plan: Neuro: Awake and alert, monitor neuro status. On thiamine, multivitamin daily Watch for signs of withdrawal Pulm: Continue with oxygen keep sat >92% Bronchodilators PRN CV: Wean off Levophed Monitor HR and BP keep MAP>65mmHg. Lactic acid 1.5 : Monitor renal function, I/O's, electrolytes replacement per protocol. Will need K replacement today. Decrease IVF LR@75ml/hr GI: On Full liquid diet, advance diet if ok with CRS Status post Operative intervention - debridement on 09/[address] Millan. ID: Continue abx per ID ( Zosyn) monitor for signs of infections ( Fever, WBC) follow up on cxs Wound care per CRS Heme: Monitor CBC Endo: SSI if needed for glycemic control GI prophylaxis- on Protonix IV for GI prophylaxis DVT prophylaxisSCDs and subcutaneous heparin Patient remains in septic shock on Levophed. Condition critical CCT 30 mins Tomasz Lemons MD Sep 21, 2016 07:52
[2016-09-21] MEDS: SODIUM CHLORIDE 0.9% FLUSH 5 ML FLUSH IV FLUSH SCH ×2 (09:00→19:55)
[2016-09-21] MEDS: PANTOPRAZOLE SODIUM 40 MG VIAL IV SCH (09:02)
[2016-09-21] MEDS: MULTIVITAMIN TAB PO SCH (09:02)
--- NOTE | 2016-09-21 10:54 | HHI.PR ---
Subjective Remarks Pt awake, alert, oriented. Looks good. Hungry. Objective Vital Signs Date Time Temp Pulse Resp B/P Pulse Ox O2 Delivery O2 Flow Rate FiO2 09/21/16 08:00 98.0 103 29 114/73 92 114/68 09/21/16 08:00 98 09/21/16 06:00 113 09/21/16 04:00 97.6 99 29 111/73 92 111/65 09/21/16 04:00 99 09/21/16 02:00 74 09/21/16 00:00 98.3 109 27 107/57 95 92/62 09/21/16 00:00 109 09/20/16 22:14 96 Nasal Cannula 4.00 09/20/16 22:00 97 09/20/16 20:00 98 09/20/16 20:00 98.3 98 21 106/77 97 87/63 09/20/16 18:00 125 09/20/16 16:00 99 09/20/16 16:00 97.8 99 27 105/70 93 94/63 09/20/16 16:00 105/70 94/63 09/20/16 14:00 95 09/20/16 12:00 98.0 116 24 142/70 92 84/57 09/20/16 12:00 116 142/70 84/57 09/20/16 12:00 116 09/20/16 11:02 93 Nasal Cannula 5.00 I/O 09/20/16 09/20/16 09/20/16 09/21/16 09/21/16 09/21/16 07:00 15:00 23:00 07:00 15:00 23:00 Intake Total 1410 ml 2238 ml 1794 ml 1395 ml Output Total 820 ml 680 ml 530 ml 735 ml Balance 590 ml 1558 ml 1264 ml 660 ml Intake Oral 750 ml 250 ml IV Total 1410 ml 1488 ml 1544 ml 1395 ml Output Urine Total 820 ml 680 ml 530 ml 735 ml Result Diagram: 09/21/16 0500 09/21/16 0500 Objective Remarks VS-S Abd: soft,mild distention,non tender. Rectum: Wound undressed. Clean. No significant undrained areas or necrosis. Blood cultures + for Gm+ or Gm- organisms. Assessment and Plan Assessment and Plan Stable POD#2 Plan: Wean pressors.Advance diet. I showed nurses how to clean and pack wound. Piperacillin adequate now since wound open and clean. Transfer anytime when off pressors. Gianluca Barkley MD Sep 21, 2016 10:54
--- NOTE | 2016-09-21 12:11 | HHI.IDPN ---
Note Infectious Disease Note ID COVERAGE for Dr Neal. Notes reviewed. Patient in no distress. Gets occasional Hiccups. Feels great. Denies. Chills. Afebrile. Blood culture has pleomorphic gram positive organism. Wound culture has anaerobic gram neg rikki. Post surgery for necrotizing fascitis at R. buttock. Allergies: Coded Allergies: No Known Allergies (Unverified , 09/19/16) Past Medical History Hypertension Atrial fibrillation Past Surgical History Rotator cuff surgery ANTIBIOTICS: Zosyn. Current Medications Medications (Trade) Dose Ordered Sig/Amando Route PRN Reason Start Time Stop Time Status Last Admin Dose Admin Norepinephrine Bitartrate 250 ml @ 0 mls/hr TITRATE IV 09/19/16 14:30 09/20/16 16:43 Piperacillin Sod/ Tazobactam Sod (Zosyn 4.5 Gm Premix) 100 ml @ 200 mls/hr Q6H IV 09/19/16 20:00 09/21/16 09:02 Magnesium Oxide 800 mg 800 mg UNSCH PRN PO For Magnesium 1.2 - 1.6 mg/dL 09/19/16 18:15 Magnesium Sulfate 4 gm/Sodium Chloride 100 ml @ 50 mls/hr UNSCH PRN IV For Magnesium 0.9 - 1.1 mg/dL 09/19/16 18:15 Magnesium Sulfate 2 gm/Sodium Chloride 100 ml @ 50 mls/hr UNSCH PRN IV For Magnesium 1.2 - 1.6 mg/dL 09/19/16 18:15 Potassium Chloride 100 ml @ 50 mls/hr Q2H PRN IV For Potassium 2.8 - 3.2 mEq/L 09/19/16 18:15 Potassium Chloride 100 ml @ 50 mls/hr Q2H PRN IV For Potassium 3.3 - 3.5 mEq/L 09/19/16 18:15 Potassium Chloride 100 ml @ 50 mls/hr Q2H PRN IV For Potassium 2.8 - 3.2 mEq/L 09/19/16 18:15 09/20/16 20:48 Potassium Chloride (KCl 40 Meq Premix Inj) 100 ml @ 25 mls/hr UNSCH PRN IV For Potassium 3.3 - 3.5 mEq/L 09/19/16 18:15 09/21/16 06:37 Potassium Chloride (KCl 40 Meq/30 ml Liq) 40 meq UNSCH PRN PO/TUBE For Potassium 3.3 - 3.5 mEq/L 09/19/16 18:15 Potassium Chloride (KCl 40 Meq/30 ml Liq) 40 meq UNSCH PRN PO/TUBE SEE LABEL COMMENTS 09/19/16 18:15 Potassium Phosphate (K-Phos) 2,000 mg Q4H PRN PO For Phosphorus < 2.5 mg/dL 09/19/16 18:15 Potassium Phosphate 2000 mg 2,000 mg UNSCH PRN PO/TUBE SEE LABEL COMMENTS 09/19/16 18:15 Potassium Phosphate 30 mmol/ Sodium Chloride 260 ml @ 42 mls/hr UNSCH PRN IV SEE LABEL COMMENTS 09/19/16 18:15 Sodium Phosphate/ Sodium Chloride (Sodium Phosphate Inj/NS 250 ml Inj) 250 ml @ 42 mls/hr UNSCH PRN IV For Phosphorus < 2.5 mg/dL 09/19/16 18:15 Dextrose (D50w (Vial) Inj) 25 ml UNSCH PRN IV PUSH HYPOGLYCEMIA-SEE COMMENTS 09/19/16 18:15 Insulin Human Regular (NovoLIN R SUPPLEMENTAL SCALE) 1 Q6HR SQ 09/20/16 00:00 Thiamine HCl (Vitamin B1) 100 mg DAILY PO 09/23/16 09:00 Multivitamins 1 tab 1 tab DAILY PO 09/20/16 09:00 09/21/16 09:02 Lactated Ringer's (Lr 1000 ml Inj) 1,000 ml @ 50 mls/hr Q20H IV 09/19/16 18:13 09/21/16 05:23 IV Flush (NS Flush) 2 ml UNSCH PRN IV FLUSH FLUSH AFTER USING IV ACCESS 09/19/16 18:15 IV Flush (NS Flush) 2 ml BID IV FLUSH 09/19/16 21:00 09/21/16 09:00 Acetaminophen (Tylenol) 650 mg Q6H PRN PO PAIN 1-10 AND/OR FEVER >101F 09/19/16 18:15 Pantoprazole Sodium (Protonix Inj) 40 mg DAILY IV 09/20/16 09:00 09/21/16 09:02 Ondansetron HCl (Zofran Inj) 4 mg Q6H PRN IV NAUSEA OR VOMITING 09/19/16 18:15 Miscellaneous Information 1 Q361D XX 09/19/16 18:15 09/19/16 18:15 Chlorhexidine Gluconate (Chlorhexidine 2% Cloth) 3 pack Taper DAILY@04 TOP 09/20/16 04:00 09/16/17 03:59 09/21/16 04:00 Chlorhexidine Gluconate (Chlorhexidine 2% Cloth) 3 pack UNSCH PRN TOP HYGIENIC CARE 09/19/16 18:15 Social History Patient is Originally from [place], down here in [place] in the last 4 years Smokes 2 packs per day of cigarettes Drinks beer 4 per day Denies illicit drug use Physical Exam OBJECTIVE: Vital Signs Date Time Temp Pulse Resp B/P Pulse Ox O2 Delivery O2 Flow Rate FiO2 09/21/16 08:00 98.0 103 29 114/73 92 114/68 09/21/16 08:00 98 09/21/16 06:00 113 09/21/16 04:00 97.6 99 29 111/73 92 111/65 09/21/16 04:00 99 09/21/16 02:00 74 09/21/16 00:00 98.3 109 27 107/57 95 92/62 09/21/16 00:00 109 09/20/16 22:14 96 Nasal Cannula 4.00 09/20/16 22:00 97 09/20/16 20:00 98 09/20/16 20:00 98.3 98 21 106/77 97 87/63 09/20/16 18:00 125 09/20/16 16:00 99 09/20/16 16:00 97.8 99 27 105/70 93 94/63 09/20/16 16:00 105/70 94/63 09/20/16 14:00 95 09/20/16 09/20/16 09/21/16 15:00 23:00 07:00 Intake Total 2238 ml 1794 ml 1395 ml Output Total 680 ml 530 ml 735 ml Balance 1558 ml 1264 ml 660 ml Intake Oral 750 ml 250 ml IV Total 1488 ml 1544 ml 1395 ml Output Urine Total 680 ml 530 ml 735 ml Laboratory Tests Test 09/20/16 09/21/16 03:40 05:00 White Blood Count 14.1 TH/MM3 11.3 TH/MM3 Red Blood Count 3.76 MIL/MM3 3.89 MIL/MM3 Hemoglobin 11.6 GM/DL 12.0 GM/DL Hematocrit 34.5 % 35.2 % Mean Corpuscular Volume 91.8 FL 90.5 FL Mean Corpuscular Hemoglobin 30.7 PG 30.9 PG Mean Corpuscular Hemoglobin 33.5 % 34.2 % Concent Red Cell Distribution Width 13.0 % 13.5 % Platelet Count 195 TH/MM3 243 TH/MM3 Mean Platelet Volume 8.5 FL 8.3 FL Laboratory Tests Test 09/19/16 09/20/16 09/20/16 09/21/16 15:37 03:40 17:43 05:00 Lactic Acid Level 1.5 mmol/L Sodium Level 141 MEQ/L 140 MEQ/L Potassium Level 3.3 MEQ/L 2.9 MEQ/L 3.4 MEQ/L Chloride Level 109 MEQ/L 109 MEQ/L Carbon Dioxide Level 22.5 MEQ/L 22.9 MEQ/L Anion Gap 10 MEQ/L 8 MEQ/L Blood Urea Nitrogen 15 MG/DL 11 MG/DL Creatinine 0.73 MG/DL 0.72 MG/DL Estimat Glomerular Filtration 110 ML/MIN 112 ML/MIN Rate Random Glucose 127 MG/DL 103 MG/DL Calcium Level 7.7 MG/DL 8.0 MG/DL Albumin 1.5 GM/DL Microbiology Date/Time Procedure Status Source Growth 09/19/16 12:00 Aerobic Blood Culture - Preliminary Resulted Blood Peripheral NO GROWTH IN 2 DAYS 09/19/16 12:00 Anaerobic Blood Culture - Preliminary Resulted Pleomorphic Gram Positive Rods 09/19/16 12:05 Aerobic Blood Culture - Preliminary Resulted Blood Peripheral NO GROWTH IN 2 DAYS 09/19/16 12:05 Anaerobic Blood Culture - Preliminary Resulted Pleomorphic Gram Positive Rods Gram Positive Cocci 09/19/16 12:40 Gram Stain - Final Complete Wound Buttock 09/19/16 12:40 Wound Culture - Final Complete Anaerobic Gram Neg Rikki 09/19/16 14:46 Urine Culture - Final Complete Urine Clean Catch NO GROWTH IN 48 HOURS. IMAGING: Chest X-Ray 09/19/16 1518 Signed Impressions: Service Date/Time: September 15:30 - CONCLUSION: 1. Cardiomegaly and findings of vascular congestion without overt failure. 2. Uncomplicated line placement. No evidence of pneumothorax. Aris Garcia MD Abdomen/Pelvis CT 09/19/16 1147 Signed Impressions: Service Date/Time: September 13:03 - CONCLUSION: 1. Extensive induration, soft tissue swelling and subcutaneous emphysema in the right perirectal/posterior perineal region concerning for abscess and necrotizing fasciitis. No significant fluid collection. Surgical consultation and aggressive antibiotic treatment recommended. 2. Hepatic steatosis, diverticulosis and distended urinary bladder. Samuel Craig MD GENERAL: Patient is in no acute distress. Awake and alert. HEENT: EOMI, No icterus. NECK: Supple, no swelling. LUNGS: Clear breath sounds. CARDIAC: Irregular rate and rhythm. Nl S1S2. ABDOMEN: Soft, non tender. BUTTOCK: Wound clean. No drainage. EXTREMITIES: No CCE. SKIN: No rash. Assessment and Plan IMPRESSION Sepsis on presentation with shock due to necrotizing infection Necrotizing infection R buttock/perineum, S/P debridment - usually polymicrobial Atrial fibrillation RECOMMENDATION Continue Zosyn Follow the blood cultures Wound care per CRS, further debridement per surgery Rambo Carranza MD Sep 21, 2016 12:11
[2016-09-22] VITALS (13 sets, daily range): BP systolic 90–122; BP diastolic 62–87; PULSE 90–110; RESP 22–28; TEMP 97.5–98; O2SAT 93–97
[2016-09-22] MEDS: PIPERACIL-TAZO 4.5 GM PREMIX 100 ML IV SCH ×4 (01:19→20:00)
[2016-09-22] MEDS: RESP: ALBUTEROL 2.5 MG/IPRATROPIUM 0.5 MG NEB (SCH) INH ×3 (03:20→21:19)
[2016-09-22] MEDS: INSULIN NovoLIN REGULAR SUPPLEMENTAL SCALE SQ SCH ×4 (05:19→22:49)
[2016-09-22 07:06] LABS: AUTOMATED NEUTROPHIL # 5.2 TH/MM3 (1.8-7.7); BASOPHIL % 0.5 % (0.0-2.0); EOSINOPHIL # 0.2 TH/MM3 (0-0.4); EOSINOPHIL % 2.4 % (0.0-4.0); HEMATOCRIT 36.9 % (39.0-51.0); LYMPH % 18.6 % (9.0-44.0); LYMPHOCYTE # 1.4 TH/MM3 (1.0-4.8); MEAN CELL VOLUME 91.6 FL (80.0-100.0); MEAN CORPUSCULAR HEMOGLOBIN 30.9 PG (27.0-34.0); MEAN CORPUSCULAR HGB CONC 33.8 % (32.0-36.0); MONO % 11.4 % (0.0-8.0); NEUT % 67.1 % (16.0-70.0); PLATELET COUNT 263 TH/MM3 (150-450); RED BLOOD COUNT 4.02 MIL/MM3 (4.50-5.90); RED CELL DISTRIBUTION WIDTH 13.1 % (11.6-17.2); WHITE BLOOD COUNT 7.7 TH/MM3 (4.0-11.0)
[2016-09-22 07:19] LABS: BICARBONATE 24.8 MEQ/L (21.0-32.0); MAGNESIUM 1.9 MG/DL (1.5-2.5); POTASSIUM 3.5 MEQ/L (3.5-5.1)
[2016-09-22 07:27] LABS: HEMO FLAGS AUTO DIFF
--- NOTE | 2016-09-22 07:37 | HHI.CCPN ---
Subjective Remarks/Hospital Course 09/19: This is a 61yM with h/o afib and htn, etoh abuse, who presents to the [facility] ED with complaints of buttock pain as well as generalized fatigue, fever, chills, nausea, vomiting since Friday (x 5 days). He denied CP, or SOB. denied constipation, diarrhea, bloody stools or hematemesis. he states he has never had this problem before. In the emergency department, he was found to have a large right buttock fluctuant area. CT abd/pelvis is concerning for a necrotizing soft tissue infection. He was given 4L NS ivf and started on norepinephrine. A bedside incision and drainage was performed with significant amount of purulent drainage. The patient remained significantly hypotensive with an elevated lactate at 2.5. He was emergently transferred to the [facility] for emergent operative debridement of his soft tissue infection. When he arrived to the [facility] PACU, Dr. Rossi immediately evaluated the patient. He was on [place] o2. He was on levophed at 3mcg/min. He had 1L uop in his Bejarano catheter. He denied any additional complaints. 09/20: Underwent debridement of right gluteal region with suspected necrotizing fasciitis on 09/[address] Millan under general anesthesia. Remains on Levophed for pressor support. On nasal cannula currently. 09/21 Patient is on 4L oxygen with god sats. Afebrile. On Levophed 3 mics. 09/22 Patient is off Levophed, awake and alert lying in bed in NAD. Objective Vital Signs Date Time Temp Pulse Resp B/P Pulse Ox O2 Delivery O2 Flow Rate FiO2 09/22/16 06:00 103 09/22/16 04:00 97.9 22 122/73 94 99/68 09/21/16 21:19 Nasal Cannula 3.00 Intake and Output 09/21/16 09/21/16 09/22/16 08:00 16:00 00:00 Intake Total 1395 ml 1130 ml 1438 ml Output Total 645 ml 1300 ml 550 ml Balance 750 ml -170 ml 888 ml Result Diagram: 09/22/16 0500 09/22/16 0500 Other Results Laboratory Tests Test 09/21/16 09/22/16 17:43 05:00 Potassium Level 3.7 MEQ/L 3.5 MEQ/L White Blood Count 7.7 TH/MM3 Red Blood Count 4.02 MIL/MM3 Hemoglobin 12.4 GM/DL Hematocrit 36.9 % Mean Corpuscular Volume 91.6 FL Mean Corpuscular Hemoglobin 30.9 PG Mean Corpuscular Hemoglobin 33.8 % Concent Red Cell Distribution Width 13.1 % Platelet Count 263 TH/MM3 Mean Platelet Volume 8.5 FL Neutrophils (%) (Auto) 67.1 % Lymphocytes (%) (Auto) 18.6 % Monocytes (%) (Auto) 11.4 % Eosinophils (%) (Auto) 2.4 % Basophils (%) (Auto) 0.5 % Neutrophils # (Auto) 5.2 TH/MM3 Lymphocytes # (Auto) 1.4 TH/MM3 Monocytes # (Auto) 0.9 TH/MM3 Eosinophils # (Auto) 0.2 TH/MM3 Basophils # (Auto) 0.0 TH/MM3 CBC Comment AUTO DIFF Sodium Level 138 MEQ/L Chloride Level 105 MEQ/L Carbon Dioxide Level 24.8 MEQ/L Anion Gap 8 MEQ/L Blood Urea Nitrogen 8 MG/DL Creatinine 0.76 MG/DL Estimat Glomerular Filtration 105 ML/MIN Rate Random Glucose 87 MG/DL Calcium Level 8.2 MG/DL Phosphorus Level 2.9 MG/DL Magnesium Level 1.9 MG/DL Imaging Last Impressions Chest X-Ray 09/19/16 1518 Signed Impressions: Service Date/Time: September 15:30 - CONCLUSION: 1. Cardiomegaly and findings of vascular congestion without overt failure. 2. Uncomplicated line placement. No evidence of pneumothorax. Aris Garcia MD Abdomen/Pelvis CT 09/19/16 1147 Signed Impressions: Service Date/Time: September 13:03 - CONCLUSION: 1. Extensive induration, soft tissue swelling and subcutaneous emphysema in the right perirectal/posterior perineal region concerning for abscess and necrotizing fasciitis. No significant fluid collection. Surgical consultation and aggressive antibiotic treatment recommended. 2. Hepatic steatosis, diverticulosis and distended urinary bladder. Samuel Craig MD Objective Remarks GENERAL: Middle-aged male, lying in bed, not in any acute distress HEENT: Normocephalic. Atraumatic. Pupils equally round and reactive. Membranes are dry. NECK: No JVD. Trachea is midline. Right IJ triple-lumen catheter with his dressing clean dry and intact. CHEST: Equal chest rise. Clear to auscultation bilaterally. CARDIOVASCULAR: Normal rate, irregularly irregular rhythm. No appreciable murmurs. ABDOMEN: soft, nontender, nondistended. No guarding. MUSCULOSKELETAL: Packing over right buttock surgical site in place. no peripheral edema, distal pulses 2+ NEUROLOGICAL: Awake alert oriented 3, grossly nonfocal A/P Assessment and Plan Assessment: This is a 61-year-old male with history of alcohol use, tobacco use , hypertension, atrial fibrillation now with a necrotizing soft tissue infection of the right buttock, septic shock. Active problems: Alcohol dependence Lactic acidosis- Resolved s/p Septic shock Acute protein calorie malnutritionmild Necrotizing soft tissue infection, bereket-rectal. Plan: Neuro: Awake and alert, monitor neuro status. On thiamine, multivitamin daily Watch for signs of withdrawal Pulm: Continue with oxygen keep sat >92% Bronchodilators PRN CV: Off Levophed Monitor HR and BP keep MAP>65mmHg. Lactic acid 1.5 : Monitor renal function, I/O's, electrolytes replacement per protocol. GI: On regular diet Status post Operative intervention - debridement on 09/[address] Millan. ID: Continue abx per ID ( Zosyn) monitor for signs of infections ( Fever, WBC) check BC x 2 sets Wound care per CRS 2/2 BC : Pleomorphic GPR, GPC 2/2 wound cx: Anaerobic GNR 2/2 Urine cx: No growth Heme: Monitor CBC Endo: SSI if needed for glycemic control GI prophylaxis- on Protonix IV for GI prophylaxis DVT prophylaxisSCDs and subcutaneous heparin Will sign off and transfer acre to [facility] Level 3 Tomasz Lemons MD Sep 22, 2016 07:37
[2016-09-22] MEDS: PANTOPRAZOLE SODIUM 40 MG VIAL IV SCH (08:37)
[2016-09-22] MEDS: MULTIVITAMIN TAB PO SCH (08:37)
[2016-09-22] MEDS: SODIUM CHLORIDE 0.9% FLUSH 5 ML FLUSH IV FLUSH SCH ×2 (08:37→20:16)
[2016-09-22 09:35] LABS: OVALOCYTES 1+ (NORMAL); SCAN/DIFF AUTO DIFF CONFIRMED
--- NOTE | 2016-09-22 09:45 | HHI.PR ---
Subjective Remarks Pt awake, alert, oriented. Looks good. Wants to go home. Off pressors. Objective Vital Signs Date Time Temp Pulse Resp B/P Pulse Ox O2 Delivery O2 Flow Rate FiO2 09/22/16 08:00 98.0 101 22 111/87 97 09/22/16 08:00 103 09/22/16 06:00 103 09/22/16 04:00 109 09/22/16 04:00 97.9 109 22 122/73 94 99/68 09/22/16 02:00 108 09/22/16 00:00 105 09/22/16 00:00 97.5 105 28 110/73 93 100/62 09/21/16 22:00 118 09/21/16 21:19 96 Nasal Cannula 3.00 09/21/16 20:00 97.9 102 28 111/73 93 124/69 09/21/16 20:00 102 09/21/16 18:00 98 09/21/16 16:29 96 Nasal Cannula 3.00 09/21/16 16:00 98 09/21/16 16:00 98.0 100 29 103/73 92 114/90 09/21/16 15:00 98 09/21/16 12:00 98 09/21/16 12:00 98.0 100 29 114/73 92 97/73 09/21/16 10:00 98 I/O 09/21/16 09/21/16 09/21/16 09/22/16 09/22/16 09/22/16 07:00 15:00 23:00 07:00 15:00 23:00 Intake Total 1395 ml 1130 ml 1208 ml 1192 ml Output Total 735 ml 1200 ml 620 ml 990 ml Balance 660 ml -70 ml 588 ml 202 ml Intake Oral 740 ml 630 ml IV Total 1395 ml 1130 ml 468 ml 562 ml Output Urine Total 735 ml 1200 ml 620 ml 990 ml Result Diagram: 09/22/16 0500 09/22/16 0500 Objective Remarks VS-S Abd: soft,mild distention,non tender. Rectum: Wound clean. No significant undrained areas or necrosis. Not packed up next to rectum as instructed yesterday Blood cultures + for Gm+ or Gm- organisms. Assessment and Plan Assessment and Plan Stable POD#3 Plan: I showed nurses how to clean and pack wound. Piperacillin adequate now since wound open and clean. Transfer anytime. Change antibiotics to oral anytime. Possible D/C tomorrow Gianluca Barkley MD Sep 22, 2016 09:45
[2016-09-22] MEDS: CHLORHEXIDINE GLUCONATE 2 % 1 PACK (2 CLOTHS) TOP SCH (22:49)
[2016-09-23] VITALS (14 sets, daily range): BP systolic 92–123; BP diastolic 66–87; PULSE 97–137; RESP 16–22; TEMP 97.6–98.9; O2SAT 92–100
[2016-09-23] MEDS: PIPERACIL-TAZO 4.5 GM PREMIX 100 ML IV SCH ×4 (01:25→20:36)
[2016-09-23] MEDS: RESP: ALBUTEROL 2.5 MG/IPRATROPIUM 0.5 MG NEB (SCH) INH ×4 (03:50→20:52)
[2016-09-23] MEDS: INSULIN NovoLIN REGULAR SUPPLEMENTAL SCALE SQ SCH ×3 (04:13→18:00)
[2016-09-23 05:39] LABS: AUTOMATED NEUTROPHIL # 6.2 TH/MM3 (1.8-7.7); BASOPHIL % 0.4 % (0.0-2.0); EOSINOPHIL # 0.2 TH/MM3 (0-0.4); EOSINOPHIL % 1.9 % (0.0-4.0); HEMATOCRIT 37.3 % (39.0-51.0); HEMO FLAGS DIFF FINAL; LYMPH % 16.7 % (9.0-44.0); LYMPHOCYTE # 1.4 TH/MM3 (1.0-4.8); MEAN CELL VOLUME 91.2 FL (80.0-100.0); MEAN CORPUSCULAR HEMOGLOBIN 30.9 PG (27.0-34.0); MEAN CORPUSCULAR HGB CONC 33.9 % (32.0-36.0); MONO % 9.1 % (0.0-8.0); NEUT % 71.9 % (16.0-70.0); PLATELET COUNT 292 TH/MM3 (150-450); RED BLOOD COUNT 4.09 MIL/MM3 (4.50-5.90); RED CELL DISTRIBUTION WIDTH 13.2 % (11.6-17.2); WHITE BLOOD COUNT 8.6 TH/MM3 (4.0-11.0)
[2016-09-23 06:07] LABS: BICARBONATE 25.3 MEQ/L (21.0-32.0); POTASSIUM 3.8 MEQ/L (3.5-5.1)
[2016-09-23] MEDS: THIAMINE HCL 100 MG TAB PO SCH (08:17)
[2016-09-23] MEDS: MULTIVITAMIN TAB PO SCH (08:17)
[2016-09-23] MEDS: PANTOPRAZOLE SODIUM 40 MG VIAL IV SCH (08:17)
[2016-09-23] MEDS: SODIUM CHLORIDE 0.9% FLUSH 5 ML FLUSH IV FLUSH SCH ×2 (08:18→20:37)
--- NOTE | 2016-09-23 10:31 | HHI.IDPN ---
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 Vital Signs Date Time Temp Pulse Resp B/P Pulse Ox O2 Delivery O2 Flow Rate FiO2 09/23/16 09:10 92 21 09/23/16 06:00 98 09/23/16 04:00 97.9 100 20 110/72 94 92/66 09/23/16 04:00 100 09/23/16 02:00 102 09/23/16 01:24 Nasal Cannula 3.00 09/23/16 00:00 113 09/23/16 00:00 97.6 113 22 111/72 95 99/67 09/22/16 22:00 106 09/22/16 20:00 97.6 110 22 110/73 95 95/68 09/22/16 20:00 110 09/22/16 18:00 90 09/22/16 16:00 98 09/22/16 16:00 98.0 92 22 98/70 97 09/22/16 14:00 103 09/22/16 12:00 103 09/22/16 12:00 98.0 101 22 90/70 97 09/22/16 10:46 97 Nasal Cannula 3.00 09/22/16 10:00 103 09/22/16 09/22/16 09/23/16 15:00 23:00 07:00 Intake Total 480 ml 720 ml 872 ml Output Total 1500 ml 625 ml 750 ml Balance -1020 ml 95 ml 122 ml Intake Oral 480 ml 500 ml 450 ml IV Total 220 ml 422 ml Output Urine Total 1500 ml 625 ml 750 ml # Bowel Movements 1 . Laboratory Tests Test 09/22/16 09/23/16 05:00 05:00 White Blood Count 7.7 TH/MM3 8.6 TH/MM3 Red Blood Count 4.02 MIL/MM3 4.09 MIL/MM3 Hemoglobin 12.4 GM/DL 12.7 GM/DL Hematocrit 36.9 % 37.3 % Mean Corpuscular Volume 91.6 FL 91.2 FL Mean Corpuscular Hemoglobin 30.9 PG 30.9 PG Mean Corpuscular Hemoglobin 33.8 % 33.9 % Concent Red Cell Distribution Width 13.1 % 13.2 % Platelet Count 263 TH/MM3 292 TH/MM3 Mean Platelet Volume 8.5 FL 8.5 FL Neutrophils (%) (Auto) 67.1 % 71.9 % Lymphocytes (%) (Auto) 18.6 % 16.7 % Monocytes (%) (Auto) 11.4 % 9.1 % Eosinophils (%) (Auto) 2.4 % 1.9 % Basophils (%) (Auto) 0.5 % 0.4 % Neutrophils # (Auto) 5.2 TH/MM3 6.2 TH/MM3 Lymphocytes # (Auto) 1.4 TH/MM3 1.4 TH/MM3 Monocytes # (Auto) 0.9 TH/MM3 0.8 TH/MM3 Eosinophils # (Auto) 0.2 TH/MM3 0.2 TH/MM3 Basophils # (Auto) 0.0 TH/MM3 0.0 TH/MM3 CBC Comment AUTO DIFF DIFF FINAL Differential Comment AUTO DIFF CONFIRMED Ovalocytes 1+ Laboratory Tests Test 09/21/16 09/22/16 09/23/16 17:43 05:00 05:00 Potassium Level 3.7 MEQ/L 3.5 MEQ/L 3.8 MEQ/L Sodium Level 138 MEQ/L 137 MEQ/L Chloride Level 105 MEQ/L 104 MEQ/L Carbon Dioxide Level 24.8 MEQ/L 25.3 MEQ/L Anion Gap 8 MEQ/L 8 MEQ/L Blood Urea Nitrogen 8 MG/DL 8 MG/DL Creatinine 0.76 MG/DL 0.81 MG/DL Estimat Glomerular Filtration 105 ML/MIN 98 ML/MIN Rate Random Glucose 87 MG/DL 82 MG/DL Calcium Level 8.2 MG/DL 8.4 MG/DL Phosphorus Level 2.9 MG/DL Magnesium Level 1.9 MG/DL Microbiology Date/Time Procedure Status Source Growth 09/22/16 10:35 Aerobic Blood Culture Received Blood Peripheral Pending 09/22/16 10:35 Anaerobic Blood Culture Received Blood Peripheral Pending 09/22/16 10:40 Aerobic Blood Culture Received Blood Peripheral Pending 09/22/16 10:40 Anaerobic Blood Culture Received Blood Peripheral Pending Imaging Chest X-Ray 09/19/16 1518 Signed Impressions: Service Date/Time: September 15:30 - CONCLUSION: 1. Cardiomegaly and findings of vascular congestion without overt failure. 2. Uncomplicated line placement. No evidence of pneumothorax. Aris Garcia MD Abdomen/Pelvis CT 09/19/16 1147 Signed Impressions: Service Date/Time: September 13:03 - CONCLUSION: 1. Extensive induration, soft tissue swelling and subcutaneous emphysema in the right perirectal/posterior perineal region concerning for abscess and necrotizing fasciitis. No significant fluid collection. Surgical consultation and aggressive antibiotic treatment recommended. 2. Hepatic steatosis, diverticulosis and distended urinary bladder. Samuel Craig MD Physical Exam GENERAL: awake and alert, NAD SKIN: Warm and dry. No generalized rash HEENT: [place] conjunctivae, no petechia or hemorrhage. No scleral icterus. No injection or drainage. Moist oral mucosa. NECK: Trachea midline. No JVD or lymphadenopathy. Supple, nontender, no meningeal signs. CARDIOVASCULAR: Irregular rate and rhythm without murmurs, gallops, or rubs. RESPIRATORY: Clear to auscultation. Breath sounds equal bilaterally. No wheezes , rales, or rhonchi. GASTROINTESTINAL: Abdomen soft, non-tender, nondistended. Bowel sounds are present and normoactive. No organomegaly. No guarding. No rebound tenderness. MUSCULOSKELETAL: Extremities without clubbing, cyanosis, or edema. No joint effusion, or edema noted. Good range of motion. No calf tenderness. Negative Homans sign bilaterally. NEUROLOGICAL: Non-focal : No abnormality seen in genital region, BACK: Large open wound in R buttock with undermining, very close to anus, has soiling with stool when I examined the wound. No necrotic tissue LINE: R neck central line with no evidence of infection Assessment & Plan Remarks IMPRESSION Sepsis on presentation with shock due to necrotizing infection, resolved - no fever - BP better - leukocytosis resolved Necrotizing infection R buttock/perineum, S/P debridement - wound clean RECOMMENDATION Continue Zosyn Wound care per CRS CRS has cleared for surgery Once patient D/C - give Augmentin 500 TID and Cipro 500 BID x 14 days CM needs to refer to SNF where patient's works Needs to clarify wound care orders - see if q8H can be done in SNF D/W RN Explained to patient process that needs to be done before [facility] Sep 23, 2016 09:54
--- NOTE | 2016-09-23 15:49 | HHI.PR ---
Subjective Remarks I was called by the nurse patient having tachycardia with A. fib along with hypotension He's laying in bed slightly lightheaded, he doesn't have chest pain or palpitation Iv fluid was stopped previously, ordered basic lab and 500 cc bolus 2 will monitor Objective Vitals Vital Signs Date Time Temp Pulse Resp B/P Pulse Ox O2 Delivery O2 Flow Rate FiO2 09/23/16 09:10 92 21 09/23/16 06:00 98 09/23/16 04:00 97.9 100 20 110/72 94 92/66 09/23/16 04:00 100 09/23/16 02:00 102 09/23/16 01:24 Nasal Cannula 3.00 09/23/16 00:00 113 09/23/16 00:00 97.6 113 22 111/72 95 99/67 09/22/16 22:00 106 09/22/16 20:00 97.6 110 22 110/73 95 95/68 09/22/16 20:00 110 09/22/16 18:00 90 09/22/16 16:00 98 09/22/16 16:00 98.0 92 22 98/70 97 I/O 09/22/16 09/22/16 09/22/16 09/23/16 09/23/16 09/23/16 07:00 15:00 23:00 07:00 15:00 23:00 Intake Total 1192 ml 480 ml 720 ml 872 ml 931 ml Output Total 990 ml 1500 ml 625 ml 750 ml 1250 ml Balance 202 ml -1020 ml 95 ml 122 ml -319 ml Intake Oral 630 ml 480 ml 500 ml 450 ml 620 ml IV Total 562 ml 220 ml 422 ml 311 ml Output Urine Total 990 ml 1500 ml 625 ml 750 ml 1250 ml # Bowel Movements 1 2 Result Diagram: 09/23/16 0500 09/23/16 0500 Objective Remarks GENERAL: This is a well-nourished, well-developed patient, in no apparent distress. SKIN: No rashes, warm and dry HEAD: Atraumatic. Normocephalic. EYES: Pupils equal round and reactive. Extraocular motions intact. No scleral icterus. ENT: Nose without bleeding, or drainage, Airway patent. NECK: Trachea midline. Supple CARDIOVASCULAR: Regular rate and rhythm without murmurs, gallops, or rubs. RESPIRATORY: Fair air entry bilaterally. No wheezes, rales, or rhonchi. GASTROINTESTINAL: Abdomen soft, non-tender, nondistended. Positive bowel sounds MUSCULOSKELETAL: Extremities without clubbing, cyanosis, or edema. Pedal pulses appreciated NEUROLOGICAL: Awake and alert. Moves all extremity. Normal speech.no focal neurological deficit A/P Assessment and Plan 09/19: This is a 61yM with h/o afib and htn, etoh abuse, who presents to the [facility] ED with complaints of buttock pain as well as generalized fatigue, fever, chills, nausea, vomiting since Friday (x 5 days). He denied CP, or SOB. denied constipation, diarrhea, bloody stools or hematemesis. he states he has never had this problem before. In the emergency department, he was found to have a large right buttock fluctuant area. CT abd/pelvis is concerning for a necrotizing soft tissue infection. He was given 4L NS ivf and started on norepinephrine. A bedside incision and drainage was performed with significant amount of purulent drainage. The patient remained significantly hypotensive with an elevated lactate at 2.5. He was emergently transferred to the [facility] for emergent operative debridement of his soft tissue infection. When he arrived to the [facility] PACU, Dr. Rossi immediately evaluated the patient. He was on NC o2. He was on levophed at 3mcg/min. He had 1L uop in his Bejarano catheter. He denied any additional complaints. 09/20: Underwent debridement of right gluteal region with suspected necrotizing fasciitis on 09/[address] Millan under general anesthesia. Remains on Levophed for pressor support. On nasal cannula currently. 09/21 Patient is on 4L oxygen with god sats. Afebrile. On Levophed 3 mics. 09/22 Patient is off Levophed, awake and alert lying in bed in NAD. 2 hypotension with A. fib with RVR heart rate in the 130, I ordered a flap with 500 cc bolus 2, patient blood pressure improved later on and heart rate dropped to between 90-100 A/P: Assessment: This is a 61-year-old male with history of alcohol use, tobacco use , hypertension, atrial fibrillation now with a necrotizing soft tissue infection of the right buttock, septic shock. Alcohol dependence Lactic acidosis- Resolved s/p Septic shock Acute protein calorie malnutritionmild Necrotizing soft tissue infection, bereket-rectal. Plan: Neuro: Awake and alert, monitor neuro status. On thiamine, multivitamin daily Watch for signs of withdrawal Continue with oxygen keep sat >92% Bronchodilators WI Status post Operative intervention - debridement on 09/[address] Millan. Continue abx per ID ( Zosyn) monitor for signs of infections ( Fever, WBC) check BC x 2 sets Wound care per CRS 09/19 BC : Pleomorphic GPR, GPC / wound cx: Anaerobic GNR 09/19 Urine cx: No growth Heme: Monitor CBC Endo: SSI if needed for glycemic control GI prophylaxis- on Protonix IV for GI prophylaxis DVT prophylaxisSCDs and subcutaneous heparin Gopal Zamora MD Sep 23, 2016 15:49
[2016-09-23] MEDS ORDERED: SODIUM CHLOR 0.9% 1000 ML INJ 1,000 ML IV ONE (20:15)
[2016-09-23] MEDS: ACETAMINOPHEN 325 MG TAB PO PRN (20:36)
[2016-09-23] MEDS: SODIUM CHLOR 0.9% 1000 ML INJ 1,000 ML IV SCH (20:37)
[2016-09-23] MEDS: METOPROLOL TARTRATE 25 MG TAB PO SCH (21:00)
--- NOTE | 2016-09-23 22:23 | HHI.PR ---
Subjective Remarks C/R Surg POD # 4 afebrile, VSS - off pressors UO good still tachy Objective - Vital Signs Date Time Temp Pulse Resp B/P Pulse Ox O2 Delivery O2 Flow Rate FiO2 09/23/16 20:56 95 21 09/23/16 18:00 110 09/23/16 16:00 98.9 19 106/82 09/23/16 01:24 Nasal Cannula 3.00 Result Diagram: 09/23/16 0500 09/23/16 0500 Objective Remarks PE alert Abd - soft, non-tender Rectal - wound clean, little discharge, clean base - mod diarrhea A/P Assessment and Plan Imp: stable post-op control rate wound care start PO, imodium Rafiq Millan MD Sep 23, 2016 22:23
[2016-09-23] MEDS ORDERED: LOPERAMIDE HCL 2 MG CAP PO PRN (22:30)
[2016-09-24] VITALS (16 sets, daily range): BP systolic 92–121; BP diastolic 66–84; PULSE 81–109; RESP 16–22; TEMP 97.6–98.7; O2SAT 91–99
[2016-09-24] MEDS: PIPERACIL-TAZO 4.5 GM PREMIX 100 ML IV SCH ×4 (00:57→20:45)
[2016-09-24] MEDS: CHLORHEXIDINE GLUCONATE 2 % 1 PACK (2 CLOTHS) TOP SCH (00:57)
[2016-09-24] MEDS: INSULIN NovoLIN REGULAR SUPPLEMENTAL SCALE SQ SCH ×4 (06:00→18:00)
[2016-09-24 07:12] LABS: HEMATOCRIT 36.3 % (39.0-51.0); MEAN CELL VOLUME 91.3 FL (80.0-100.0); MEAN CORPUSCULAR HEMOGLOBIN 30.8 PG (27.0-34.0); MEAN CORPUSCULAR HGB CONC 33.7 % (32.0-36.0); PLATELET COUNT 300 TH/MM3 (150-450); RED BLOOD COUNT 3.97 MIL/MM3 (4.50-5.90); RED CELL DISTRIBUTION WIDTH 13.2 % (11.6-17.2); REVIEW FLAG FINAL; WHITE BLOOD COUNT 6.7 TH/MM3 (4.0-11.0)
[2016-09-24 07:36] LABS: POTASSIUM 3.5 MEQ/L (3.5-5.1)
[2016-09-24] MEDS: METOPROLOL TARTRATE 25 MG TAB PO SCH ×2 (08:33→20:46)
[2016-09-24] MEDS: THIAMINE HCL 100 MG TAB PO SCH (08:33)
[2016-09-24] MEDS: MULTIVITAMIN TAB PO SCH (08:34)
[2016-09-24] MEDS: PANTOPRAZOLE SODIUM 40 MG VIAL IV SCH (08:34)
[2016-09-24] MEDS: SODIUM CHLOR 0.9% 1000 ML INJ 1,000 ML IV SCH ×2 (08:35→21:02)
[2016-09-24] MEDS: SODIUM CHLORIDE 0.9% FLUSH 5 ML FLUSH IV FLUSH SCH ×2 (08:35→20:45)
--- NOTE | 2016-09-24 10:32 | MP ---
cc: MATHEUS DE LA CRUZ M.D. 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 PROCEDURE Exam under anesthesia with extensive debridement of Darryl gangrene of perineum and buttocks. 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 SURGEON Dr. De La Cruz ASSESSMENT Dr. Aris Burks PROCEDURE The patient was placed in the supine position. After adequate general anesthesia his legs were placed in the Wilson stirrups and supported appropriately. The perineum and buttock area were then prepped extensively with Betadine solution and draped in the usual sterile fashion. Examination revealed a previous perianal incision and the right side of the buttocks was explored digitally and there was necrotic tissue in the base of the wound. The incision was therefore extended along the buttocks, opening up the cavity full of necrotic gangrenous subcu fat. The fat was sharply debrided and muscle and some of the fascia was also found to be necrotic consistent with Darryl gangrene. The incision was then extended both along the perineum and down along the posterior part of the buttocks to get further exposure of the necrosis. A rather extensive debridement of all the subcu fat and tissue was undertaken. It also appeared to extend cephalad along the rectal wall extending up toward the pubic tubercle and ischiorectal spine. All the tissue in this area was similarly removed with both sharp and electrocautery dissection. The wound was then irrigated copiously. Additional tissue was excised leaving healthy tissue at the base of the wound. Some of the skin had to be resected due to devascularization and local skin necrosis. The anoscope was inserted into the anal canal and the mucosa of the anal canal and rectal wall appeared healthy. There did not appear to be any fistulous connection to the rectum or anal canal. A fair amount of solid stool was disimpacted from the rectal vault. After copious irrigations, hemostasis was achieved at all wound sites. The large wound was then packed with several long Kerlix dressings and a large ABD pad and dressing placed externally. The patient tolerated the procedure quite well and was brought to the recovery room in stable condition. MD MAICO Martins/JOHN Blanc: 09/21/2016/9:34 AM /10:29 AM
--- NOTE | 2016-09-24 13:16 | HHI.IDPN ---
Subjective Subjective Remarks Notes reviewed D/W RN No fever Wounds clean - dressing gets changed q8H BP good No new complaints Wound C/S mixed anaerobes BC with corynebacterium Repeat BC negative WBC down to normal Antibiotics Zosyn Lines RIJ central line Past Medical History Hypertension Atrial fibrillation Past Surgical History Rotator cuff surgery Allergies: Coded Allergies: No Known Allergies (Unverified , 09/19/16) Objective . Vital Signs Date Time Temp Pulse Resp B/P Pulse Ox O2 Delivery O2 Flow Rate FiO2 09/24/16 12:00 92 09/24/16 10:00 90 09/24/16 08:23 92 21 09/24/16 08:00 98.7 100 16 119/78 91 Arterial Line 09/24/16 08:00 100 09/24/16 06:00 109 09/24/16 04:00 91 09/24/16 04:00 98.0 91 18 119/84 93 09/24/16 02:00 84 09/24/16 00:00 95 09/24/16 00:00 97.7 95 16 97/71 94 09/23/16 22:00 97 09/23/16 21:36 20 09/23/16 20:56 95 21 09/23/16 20:00 98.4 107 16 92/68 92 09/23/16 20:00 107 09/23/16 18:00 110 09/23/16 16:00 98.9 98 19 106/82 93 09/23/16 16:00 98 09/23/16 14:00 137 09/23/16 09/23/16 09/24/16 15:00 23:00 07:00 Intake Total 931 ml 2620 ml 680 ml Output Total 1250 ml 400 ml 650 ml Balance -319 ml 2220 ml 30 ml Intake Oral 620 ml 480 ml 240 ml IV Total 311 ml 2140 ml 440 ml Output Urine Total 1250 ml 400 ml 650 ml # Bowel Movements 2 1 . Laboratory Tests Test 09/23/16 09/24/16 05:00 05:29 White Blood Count 8.6 TH/MM3 6.7 TH/MM3 Red Blood Count 4.09 MIL/MM3 3.97 MIL/MM3 Hemoglobin 12.7 GM/DL 12.2 GM/DL Hematocrit 37.3 % 36.3 % Mean Corpuscular Volume 91.2 FL 91.3 FL Mean Corpuscular Hemoglobin 30.9 PG 30.8 PG Mean Corpuscular Hemoglobin 33.9 % 33.7 % Concent Red Cell Distribution Width 13.2 % 13.2 % Platelet Count 292 TH/MM3 300 TH/MM3 Mean Platelet Volume 8.5 FL 8.4 FL Neutrophils (%) (Auto) 71.9 % Lymphocytes (%) (Auto) 16.7 % Monocytes (%) (Auto) 9.1 % Eosinophils (%) (Auto) 1.9 % Basophils (%) (Auto) 0.4 % Neutrophils # (Auto) 6.2 TH/MM3 Lymphocytes # (Auto) 1.4 TH/MM3 Monocytes # (Auto) 0.8 TH/MM3 Eosinophils # (Auto) 0.2 TH/MM3 Basophils # (Auto) 0.0 TH/MM3 CBC Comment DIFF FINAL Differential Comment Laboratory Tests Test 09/23/16 09/24/16 05:00 05:29 Sodium Level 137 MEQ/L 137 MEQ/L Potassium Level 3.8 MEQ/L 3.5 MEQ/L Chloride Level 104 MEQ/L 104 MEQ/L Carbon Dioxide Level 25.3 MEQ/L 25.0 MEQ/L Anion Gap 8 MEQ/L 8 MEQ/L Blood Urea Nitrogen 8 MG/DL 7 MG/DL Creatinine 0.81 MG/DL 0.92 MG/DL Estimat Glomerular Filtration 98 ML/MIN 84 ML/MIN Rate Random Glucose 82 MG/DL 82 MG/DL Calcium Level 8.4 MG/DL 8.2 MG/DL Microbiology Date/Time Procedure Status Source Growth 09/22/16 10:35 Aerobic Blood Culture - Preliminary Resulted Blood Peripheral NO GROWTH IN 2 DAYS 09/22/16 10:35 Anaerobic Blood Culture - Preliminary Resulted Blood Peripheral NO GROWTH IN 2 DAYS 09/22/16 10:40 Aerobic Blood Culture - Preliminary Resulted Blood Peripheral NO GROWTH IN 2 DAYS 09/22/16 10:40 Anaerobic Blood Culture - Preliminary Resulted Blood Peripheral NO GROWTH IN 2 DAYS Imaging Chest X-Ray 09/19/16 1518 Signed Impressions: Service Date/Time: September 15:30 - CONCLUSION: 1. Cardiomegaly and findings of vascular congestion without overt failure. 2. Uncomplicated line placement. No evidence of pneumothorax. Aris Garcia MD Abdomen/Pelvis CT 09/19/16 1147 Signed Impressions: Service Date/Time: September 13:03 - CONCLUSION: 1. Extensive induration, soft tissue swelling and subcutaneous emphysema in the right perirectal/posterior perineal region concerning for abscess and necrotizing fasciitis. No significant fluid collection. Surgical consultation and aggressive antibiotic treatment recommended. 2. Hepatic steatosis, diverticulosis and distended urinary bladder. Samuel Craig MD Physical Exam GENERAL: awake and alert, NAD SKIN: Warm and dry. No generalized rash HEENT: [place] conjunctivae, no petechia or hemorrhage. No scleral icterus. No injection or drainage. Moist oral mucosa. NECK: Trachea midline. No JVD or lymphadenopathy. Supple, nontender, no meningeal signs. CARDIOVASCULAR: Irregular rate and rhythm without murmurs, gallops, or rubs. RESPIRATORY: Clear to auscultation. Breath sounds equal bilaterally. No wheezes , rales, or rhonchi. GASTROINTESTINAL: Abdomen soft, non-tender, nondistended. Bowel sounds are present and normoactive. No organomegaly. No guarding. No rebound tenderness. MUSCULOSKELETAL: Extremities without clubbing, cyanosis, or edema. No calf tenderness. NEUROLOGICAL: Non-focal : No abnormality seen in genital region, BACK: Large open wound in R buttock with undermining, very close to anus, has soiling with stool when I examined the wound. No necrotic tissue LINE: R neck central line with no evidence of infection Assessment & Plan Remarks IMPRESSION Sepsis on presentation with shock due to necrotizing infection, resolved - no fever - BP better - leukocytosis resolved Necrotizing infection R buttock/perineum, S/P debridement - wound clean RECOMMENDATION Continue Zosyn Wound care per CRS Once patient D/C - give Augmentin 500 TID and Cipro 500 BID x 14 days Monitor progress Clinically stable from ID standpoint D/W Patricia Montemayor MD Sep 24, 2016 13:16
--- NOTE | 2016-09-24 15:10 | HHI.FF ---
Face to Face Verification Diagnosis: (1) Perirectal abscess (2) Sepsis Physical Therapy Order: Evaluate and Treat Occupational Therapy Order: Evaluate and Treat Home Health Nursing Order: Medical education Wound care and dressing changes Nursing assessment with vital signs I have seen patient Farhad Corrales on 09/24/16. My clinical findings support the need for the requested home health care services because: Ltd mobility - disease progression Infection w/ risk of complications I certify that my clinical findings support that this patient is homebound because: Post-op weakness Gopal Zamora MD Sep 24, 2016 15:10
--- NOTE | 2016-09-24 15:11 | HHI.PR ---
Subjective Remarks He stated he feels much better, his brother and was at bedside Is afebrile no acute distress Discussed with the nurse, stated colorectal is okay with the patient to go home with home health care for dressing changes, PT also recommended rehabilitation versus home health care However blood pressure sitting on the lower side 80/50 with heart rate in 100 110s and 117, patient denied chest pain, palpitation, short of breath, headache , or lightheadedness Objective Vitals Vital Signs Date Time Temp Pulse Resp B/P Pulse Ox O2 Delivery O2 Flow Rate FiO2 09/24/16 14:00 105 09/24/16 12:00 97.9 92 19 92/69 92 09/24/16 12:00 92 09/24/16 10:00 90 09/24/16 08:23 92 21 09/24/16 08:00 98.7 100 16 119/78 91 Arterial Line 09/24/16 08:00 100 09/24/16 06:00 109 09/24/16 04:00 91 09/24/16 04:00 98.0 91 18 119/84 93 09/24/16 02:00 84 09/24/16 00:00 95 09/24/16 00:00 97.7 95 16 97/71 94 09/23/16 22:00 97 09/23/16 21:36 20 09/23/16 20:56 95 21 09/23/16 20:00 98.4 107 16 92/68 92 09/23/16 20:00 107 09/23/16 18:00 110 09/23/16 16:00 98.9 98 19 106/82 93 09/23/16 16:00 98 I/O 09/23/16 09/23/16 09/23/16 09/24/16 09/24/16 09/24/16 07:00 15:00 23:00 07:00 15:00 23:00 Intake Total 872 ml 931 ml 2620 ml 680 ml Output Total 750 ml 1250 ml 400 ml 650 ml Balance 122 ml -319 ml 2220 ml 30 ml Intake Oral 450 ml 620 ml 480 ml 240 ml IV Total 422 ml 311 ml 2140 ml 440 ml Output Urine Total 750 ml 1250 ml 400 ml 650 ml # Bowel Movements 2 1 Result Diagram: 09/24/16 0529 09/24/16 4083 Objective Remarks GENERAL: This is a well-nourished, well-developed patient, in no apparent distress. SKIN: No rashes, warm and dry HEAD: Atraumatic. Normocephalic. EYES: Pupils equal round and reactive. Extraocular motions intact. No scleral icterus. ENT: Nose without bleeding, or drainage, Airway patent. NECK: Trachea midline. Supple CARDIOVASCULAR: Regular rate and rhythm without murmurs, gallops, or rubs. RESPIRATORY: Fair air entry bilaterally. No wheezes, rales, or rhonchi. GASTROINTESTINAL: Abdomen soft, non-tender, nondistended. Positive bowel sounds MUSCULOSKELETAL: Extremities without clubbing, cyanosis, or edema. Pedal pulses appreciated NEUROLOGICAL: Awake and alert. Moves all extremity. Normal speech.no focal neurological deficit A/P Assessment and Plan 09/19: This is a 61yM with h/o afib and htn, etoh abuse, who presents to the [facility] ED with complaints of buttock pain as well as generalized fatigue, fever, chills, nausea, vomiting since Friday (x 5 days). He denied CP, or SOB. denied constipation, diarrhea, bloody stools or hematemesis. he states he has never had this problem before. In the emergency department, he was found to have a large right buttock fluctuant area. CT abd/pelvis is concerning for a necrotizing soft tissue infection. He was given 4L NS ivf and started on norepinephrine. A bedside incision and drainage was performed with significant amount of purulent drainage. The patient remained significantly hypotensive with an elevated lactate at 2.5. He was emergently transferred to the [facility] for emergent operative debridement of his soft tissue infection. When he arrived to the [facility] PACU, Dr. Rossi immediately evaluated the patient. He was on NC o2. He was on levophed at 3mcg/min. He had 1L uop in his Bejarano catheter. He denied any additional complaints. 09/20: Underwent debridement of right gluteal region with suspected necrotizing fasciitis on 09/[address] Millan under general anesthesia. Remains on Levophed for pressor support. On nasal cannula currently. 09/21 Patient is on 4L oxygen with god sats. Afebrile. On Levophed 3 mics. 09/22 Patient is off Levophed, awake and alert lying in bed in NAD. 2/ hypotension with A. fib with RVR heart rate in the 130, I ordered a flap with 500 cc bolus 2, patient blood pressure improved later on and heart rate dropped to between 90-100 09/24: Heart rate still [id number], blood pressure still low at 80/50 but not symptomatic, I reviewed telemetry strips, showed on and off A. fib, will increase Lopressor to improve filling time, and monitor telemetry closely, continue iv fluid[facility] if stabilized as far as heart rate and blood pressure, wean down oxygen, cyanide case hardener to arrange for home health care for PT and colorectal recommendation for dressing changes A/P: Assessment: This is a 61-year-old male with history of alcohol use, tobacco use , hypertension, atrial fibrillation now with a necrotizing soft tissue infection of the right buttock, septic shock. Alcohol dependence Lactic acidosis- Resolved s/p Septic shock Acute protein calorie malnutritionmild Necrotizing soft tissue infection, bereket-rectal. Plan: Neuro: Awake and alert, monitor neuro status. On thiamine, multivitamin daily Watch for signs of withdrawal Continue with oxygen keep sat >92% Bronchodilators NM Status post Operative intervention - debridement on 09/[address] Millan. Continue abx per ID ( Zosyn) monitor for signs of infections ( Fever, WBC) check BC x 2 sets Wound care per CRS 09/19 BC : Pleomorphic GPR, GPC 2/2 wound cx: Anaerobic GNR 09/19 Urine cx: No growth Heme: Monitor CBC Endo: SSI if needed for glycemic control GI prophylaxis- on Protonix IV for GI prophylaxis DVT prophylaxisSCDs and subcutaneous heparin Gopal Zamora MD Sep 24, 2016 15:11
[2016-09-24] MEDS ORDERED: METOPROLOL TARTRATE 25 MG TAB PO ONE (15:30)
[2016-09-24] MEDS: LACTOBACILLUS ACIDOPHILUS TAB PO SCH (16:38)
--- NOTE | 2016-09-24 18:02 | EKG ---
Date Performed: 09/23/2016 Time Performed: 15:01:25 PTAGE: 61 years EKG: ATRIAL FIBRILLATION WITH RAPID VENTRICULAR RESPONSE Since previous tracing, no significant change noted ABNORMAL RHYTHM ECG PREVIOUS TRACING : 09/19/2016 17.21 DOCTOR: Foster Hassan Interpretating Date/Time 09/24/2016 18:01:03
[2016-09-24] MEDS: ACETAMINOPHEN 325 MG TAB PO PRN (20:45)
[2016-09-25] VITALS: BP 135/75; PULSE 89; RESP 18; TEMP 98.1; O2SAT 96
[2016-09-25] MEDS: PIPERACIL-TAZO 4.5 GM PREMIX 100 ML IV SCH (02:33)
[2016-09-25 04:00] VITALS: BP 149/80; PULSE 94; RESP 20; TEMP 98.1; O2SAT 96
[2016-09-25] MEDS: CHLORHEXIDINE GLUCONATE 2 % 1 PACK (2 CLOTHS) TOP SCH (04:00)
[2016-09-25] MEDS: INSULIN NovoLIN REGULAR SUPPLEMENTAL SCALE SQ SCH ×2 (06:00)
[2016-09-25] MEDS: SODIUM CHLOR 0.9% 1000 ML INJ 1,000 ML IV SCH (08:00)
[2016-09-25 08:11] VITALS: BP 162/89; PULSE 93; RESP 18; TEMP 97.6; O2SAT 97
[2016-09-25 08:40] LABS: HEMATOCRIT 37.8 % (39.0-51.0); MEAN CELL VOLUME 90.3 FL (80.0-100.0); MEAN CORPUSCULAR HEMOGLOBIN 31.7 PG (27.0-34.0); MEAN CORPUSCULAR HGB CONC 35.1 % (32.0-36.0); PLATELET COUNT 337 TH/MM3 (150-450); RED BLOOD COUNT 4.19 MIL/MM3 (4.50-5.90); RED CELL DISTRIBUTION WIDTH 13.2 % (11.6-17.2); REVIEW FLAG FINAL; WHITE BLOOD COUNT 6.4 TH/MM3 (4.0-11.0)
[2016-09-25 08:56] LABS: POTASSIUM 3.6 MEQ/L (3.5-5.1)
[2016-09-25] MEDS: PANTOPRAZOLE SODIUM 40 MG VIAL IV SCH (09:00)
[2016-09-25] MEDS: SODIUM CHLORIDE 0.9% FLUSH 5 ML FLUSH IV FLUSH SCH (09:00)
[2016-09-25] MEDS: METOPROLOL TARTRATE 25 MG TAB PO SCH (10:25)
[2016-09-25] MEDS: MULTIVITAMIN TAB PO SCH (10:26)
[2016-09-25] MEDS: LACTOBACILLUS ACIDOPHILUS TAB PO SCH (10:26)
[2016-09-25] MEDS: THIAMINE HCL 100 MG TAB PO SCH (10:26)
[2016-09-25] MEDS ORDERED: CIPR500T2 PO (10:39)
[2016-09-25] MEDS ORDERED: PROT40TA PO (10:39)
[2016-09-25] MEDS ORDERED: AUGM500T7 PO (10:39)
[2016-09-25] MEDS ORDERED: LACT PO (10:39)
--- NOTE | 2016-09-25 10:44 | HHI.DS ---
Discharge Summary Admission Date Sep 19, 2016 at 14:26 Discharge Date: Sep 25, 2016 Admitting Diagnosis SEPSIS (1) Perirectal abscess ICD Code: K61.1 (2) Sepsis ICD Code: A41.9 Procedures See below Brief History - From Admission This is a 61yM with h/o afib and htn, etoh abuse, who presents to the [facility] ED with complaints of buttock pain as well as generalized fatigue, fever, chills, nausea, vomiting since Friday (x 5 days). He denied CP, or SOB. denied constipation, diarrhea, bloody stools or hematemesis. he states he has never had this problem before. In the emergency department, he was found to have a large right buttock fluctuant area. CT abd/pelvis is concerning for a necrotizing soft tissue infection. He was given 4L NS ivf and started on norepinephrine. A bedside incision and drainage was performed with significant amount of purulent drainage. The patient remained significantly hypotensive with an elevated lactate at 2.5. He was emergently transferred to the [facility] for emergent operative debridement of his soft tissue infection. When he arrived to the [facility] PACU, I immediately evaluated the patient. He was on NC o2. He was on levophed at 3mcg/min. He had 1L uop in his Bejarano catheter. He denied any additional complaints. Of note, prior to this acute illness, the patient could easily walk up 2 flights of stairs (>4 METs), no history of anesthesia complications, reassuring airway exam, NPO since yesterday morning. CBC/BMP: 09/25/16 0820 09/25/16 0820 Significant Findings Laboratory Tests Test 09/23/16 09/24/16 09/25/16 05:00 05:29 08:20 Red Blood Count 4.09 MIL/MM3 3.97 MIL/MM3 4.19 MIL/MM3 (4.50-5.90) (4.50-5.90) (4.50-5.90) Hemoglobin 12.7 GM/DL 12.2 GM/DL (13.0-17.0) (13.0-17.0) Hematocrit 37.3 % 36.3 % 37.8 % (39.0-51.0) (39.0-51.0) (39.0-51.0) Neutrophils (%) (Auto) 71.9 % (16.0-70.0) Monocytes (%) (Auto) 9.1 % (0.0-8.0) Calcium Level 8.4 MG/DL 8.2 MG/DL 8.4 MG/DL (8.5-10.1) (8.5-10.1) (8.5-10.1) Estimat Glomerular Filtration 84 ML/MIN (>89) 78 ML/MIN (>89) Rate Blood Urea Nitrogen 6 MG/DL (7-18) PE at Discharge GENERAL: This is a well-nourished, well-developed patient, in no apparent distress. SKIN: No rashes, warm and dry HEAD: Atraumatic. Normocephalic. EYES: Pupils equal round and reactive. Extraocular motions intact. No scleral icterus. ENT: Nose without bleeding, or drainage, Airway patent. NECK: Trachea midline. Supple CARDIOVASCULAR: Regular rate and rhythm without murmurs, gallops, or rubs. RESPIRATORY: Fair air entry bilaterally. No wheezes, rales, or rhonchi. GASTROINTESTINAL: Abdomen soft, non-tender, nondistended. Positive bowel sounds MUSCULOSKELETAL: Extremities without clubbing, cyanosis, or edema. Pedal pulses appreciated NEUROLOGICAL: Awake and alert. Moves all extremity. Normal speech.no focal neurological deficit Hospital Course 2/2: This is a 61yM with h/o afib and htn, etoh abuse, who presents to the [facility] ED with complaints of buttock pain as well as generalized fatigue, fever, chills, nausea, vomiting since Friday (x 5 days). He denied CP, or SOB. denied constipation, diarrhea, bloody stools or hematemesis. he states he has never had this problem before. In the emergency department, he was found to have a large right buttock fluctuant area. CT abd/pelvis is concerning for a necrotizing soft tissue infection. He was given 4L NS ivf and started on norepinephrine. A bedside incision and drainage was performed with significant amount of purulent drainage. The patient remained significantly hypotensive with an elevated lactate at 2.5. He was emergently transferred to the [facility] for emergent operative debridement of his soft tissue infection. When he arrived to the [facility] PACU, Dr. Rossi immediately evaluated the patient. He was on NC o2. He was on levophed at 3mcg/min. He had 1L uop in his Bejarano catheter. He denied any additional complaints. Alcohol dependence Lactic acidosis- Resolved s/p Septic shock Acute protein calorie malnutritionmild Necrotizing soft tissue infection, bereket-rectal. Patient placed On thiamine, multivitamin daily Close monitoring to Watch for signs of withdrawal oxygen keep sat >92%, Bronchodilators MD Status post Operative intervention - debridement on 09/[address] Millan. Continue abx per ID ( Zosyn) monitor for signs of infections ( Fever, WBC) check BC x 2 sets Wound care per CRS 09/19 BC : Pleomorphic GPR, GPC 09/19 wound cx: Anaerobic GNR 09/19 Urine cx: No growth GI prophylaxis- on Protonix IV for GI prophylaxis DVT prophylaxisSCDs and subcutaneous heparin Daily detail hospital course as follows: 09/20: Underwent debridement of right gluteal region with suspected necrotizing fasciitis on 09/[address] Millan under general anesthesia. Remains on Levophed for pressor support. On nasal cannula currently. 09/21 Patient is on 4L oxygen with god sats. Afebrile. On Levophed 3 mics. 09/22 Patient is off Levophed, awake and alert lying in bed in NAD. 09/23 hypotension with A. fib with RVR heart rate in the 130, I ordered a flap with 500 cc bolus 2, patient blood pressure improved later on and heart rate dropped to between 90-100 09/24: Heart rate still [id number], blood pressure still low at 80/50 but not symptomatic, I reviewed telemetry strips, showed on and off A. fib, will increase Lopressor to improve filling time, and monitor telemetry closely, continue iv fluid. transfer patient to [facility] floor only if stabilized as far as heart rate and blood pressure, wean down oxygen, comp field case manager to arrange for home health care for PT and colorectal recommendation for dressing changes 09/25: Blood pressure much improved along with a heart rate on the Lopressor 50 twice a day, patient improved will be discharged home with home health care for dressing changes and to follow up with a colorectal as directed Discharge Pt Condition on Discharge: Fair Discharge Disposition: Disch w/ Home Health Serv Discharge Time: > 30 minutes Discharge Instructions DIET: Follow Instructions for: Heart Healthy Diet Activities you can perform: Weight Bearing as [place] Follow up Referrals: Colorectal Surgery - 1 Week with Rafiq Millan MD New Medications: Amoxicillin-Clavulanate (Augmentin) 500-125 mg Tab 500 MG PO Q8H Infection #42 Ref 0 TAB Ciprofloxacin (Ciprofloxacin) 500 Mg Tab 500 MG PO BID Infection #28 Ref 0 TAB Pantoprazole (Protonix) 40 Mg Tab 40 MG PO DAILY Reflux #30 Ref 0 TAB Lactobacillus Acidophilus (Acidophilus/l-Sporogenes) 1 Tab Tab 1 TAB PO TID gi #30 TAB Continued Medications: Amlodipine (Amlodipine) 5 Mg Tab 5 MG PO DAILY Blood Pressure Management #30 Ref 0 TAB Aspirin (Aspirin) 81 Mg Tabdr 81 MG PO DAILY TAB Metoprolol Tartrate (Metoprolol Tartrate) 50 Mg Tab 50 MG PO BID #60 Ref 0 TAB Gopal Zamora MD Sep 25, 2016 10:44
[2016-09-25 11:30] VITALS: PULSE 88
[2016-09-25] MEDS ORDERED: PNEUMOCOCCAL POLYVALENT INJ 25 MCG/0.5 ML SYR IM ONE (12:00)
[2016-09-25] MEDS ORDERED: INFLUENZA VIRUS VACCINE (QUADRIVALENT) 0.5 ML SYR IM ONE (12:00)
--- NOTE | 2016-09-25 12:37 | HHI.PR ---
Subjective Remarks stable , no c/o bp better Objective Vitals Vital Signs Date Time Temp Pulse Resp B/P Pulse Ox O2 Delivery O2 Flow Rate FiO2 09/25/16 11:30 88 09/25/16 08:11 97.6 93 18 162/89 97 09/25/16 04:00 98.1 94 20 149/80 96 09/25/16 00:00 98.1 89 18 135/75 96 09/24/16 22:55 98.0 88 18 121/75 95 09/24/16 22:00 81 09/24/16 21:45 24 09/24/16 21:00 98.4 93 21 112/68 96 09/24/16 20:52 95 09/24/16 20:00 93 09/24/16 18:00 101 09/24/16 16:00 101 09/24/16 16:00 97.6 101 22 98/66 99 09/24/16 14:00 105 I/O 09/24/16 09/24/16 09/24/16 09/25/16 09/25/16 09/25/16 07:00 15:00 23:00 07:00 15:00 23:00 Intake Total 680 ml 1411 ml 712 ml 120 ml Output Total 650 ml 1050 ml 400 ml 600 ml Balance 30 ml 361 ml 312 ml -480 ml Intake Oral 240 ml 800 ml 120 ml IV Total 440 ml 611 ml 712 ml Output Urine Total 650 ml 1050 ml 400 ml 600 ml # Bowel Movements 1 0 Result Diagram: 09/25/1620 09/25/16819 Objective Remarks GENERAL: This is a well-nourished, well-developed patient, in no apparent distress. SKIN: No rashes, warm and dry HEAD: Atraumatic. Normocephalic. EYES: Pupils equal round and reactive. Extraocular motions intact. No scleral icterus. ENT: Nose without bleeding, or drainage, Airway patent. NECK: Trachea midline. Supple CARDIOVASCULAR: Regular rate and rhythm without murmurs, gallops, or rubs. RESPIRATORY: Fair air entry bilaterally. No wheezes, rales, or rhonchi. GASTROINTESTINAL: Abdomen soft, non-tender, nondistended. Positive bowel sounds MUSCULOSKELETAL: Extremities without clubbing, cyanosis, or edema. Pedal pulses appreciated NEUROLOGICAL: Awake and alert. Moves all extremity. Normal speech.no focal neurological deficit Procedures See below A/P Problem List: (1) Perirectal abscess ICD Code: K61.1 Status: Acute (2) Sepsis ICD Code: A41.9 Status: Acute Assessment and Plan 09/19: This is a 61yM with h/o afib and htn, etoh abuse, who presents to the [facility] ED with complaints of buttock pain as well as generalized fatigue, fever, chills, nausea, vomiting since Friday (x 5 days). He denied CP, or SOB. denied constipation, diarrhea, bloody stools or hematemesis. he states he has never had this problem before. In the emergency department, he was found to have a large right buttock fluctuant area. CT abd/pelvis is concerning for a necrotizing soft tissue infection. He was given 4L NS ivf and started on norepinephrine. A bedside incision and drainage was performed with significant amount of purulent drainage. The patient remained significantly hypotensive with an elevated lactate at 2.5. He was emergently transferred to the [facility] for emergent operative debridement of his soft tissue infection. When he arrived to the [facility] PACU, Dr. Rossi immediately evaluated the patient. He was on NC o2. He was on levophed at 3mcg/min. He had 1L uop in his Bejarano catheter. He denied any additional complaints. 09/20: Underwent debridement of right gluteal region with suspected necrotizing fasciitis on 09/[address] Millan under general anesthesia. Remains on Levophed for pressor support. On nasal cannula currently. 09/21 Patient is on 4L oxygen with god sats. Afebrile. On Levophed 3 mics. 09/22 Patient is off Levophed, awake and alert lying in bed in NAD. 09/23 hypotension with A. fib with RVR heart rate in the 130, I ordered a flap with 500 cc bolus 2, patient blood pressure improved later on and heart rate dropped to between 90-100 09/24: Heart rate still [id number], blood pressure still low at 80/50 but not symptomatic, I reviewed telemetry strips, showed on and off A. fib, will increase Lopressor to improve filling time, and monitor telemetry closely, continue iv fluid. [facility] floor only if stabilized as far as heart rate and blood pressure, wean down oxygen, assistant case manager to arrange for home health care for PT and colorectal recommendation for dressing changes 09/25: Heart rate and blood pressure much better, on Lopressor 50 twice a day, stable for discharge today with home health care A/P: Assessment: This is a 61-year-old male with history of alcohol use, tobacco use , hypertension, atrial fibrillation now with a necrotizing soft tissue infection of the right buttock, septic shock. Alcohol dependence Lactic acidosis- Resolved s/p Septic shock Acute protein calorie malnutritionmild Necrotizing soft tissue infection, bereket-rectal. Plan: Neuro: Awake and alert, monitor neuro status. On thiamine, multivitamin daily Watch for signs of withdrawal Continue with oxygen keep sat >92% Bronchodilators DC Status post Operative intervention - debridement on 09/[address] Millan. Continue abx per ID ( Zosyn) monitor for signs of infections ( Fever, WBC) check BC x 2 sets Wound care per CRS / BC : Pleomorphic GPR, GPC 2/2 wound cx: Anaerobic GNR 09/19 Urine cx: No growth Heme: Monitor CBC Endo: SSI if needed for glycemic control GI prophylaxis- on Protonix IV for GI prophylaxis DVT prophylaxisSCDs and subcutaneous heparin Problem Qualifiers (1) Sepsis: Qualified Code: A41.9 - Sepsis, due to unspecified organism Gopal Zamora MD Sep 25, 2016 12:37
== END 2016-09-25 14:02 | disposition home health service (06) | DRG 853 ==
LOC: PHED 11:02 → PHEDA 14:26 → HPAC 16:57 → HIME 21:30 → N04B 09-24 22:50 → UNDODISIN 09-25 12:40
PROVIDERS: ADMIT Hospitalist; ATTEND Hospitalist
PROC: 03HY32Z Insertion of Monitoring Device into Upper Artery, Percutaneous Approach (ICD-10-PCS; 2016-09-19)
PROC: 0DJD8ZZ Inspection of Lower Intestinal Tract, Via Natural or Artificial Opening Endoscopic (ICD-10-PCS; 2016-09-19)
PROC: 0D9P3ZZ Drainage of Rectum, Percutaneous Approach (ICD-10-PCS; 2016-09-19)
PROC: 02HV33Z Insertion of Infusion Device into Superior Vena Cava, Percutaneous Approach (ICD-10-PCS; 2016-09-19)
PROC: 0JBB0ZZ Excision of Perineum Subcutaneous Tissue and Fascia, Open Approach (ICD-10-PCS; principal; 2016-09-19 17:57)
DX: A41.9 Sepsis, unspecified organism (principal); R65.21 Severe sepsis with septic shock; E87.2 Acidosis; K61.1 Rectal abscess; E44.1 Mild protein-calorie malnutrition; N49.3 Fournier gangrene; I48.91 Unspecified atrial fibrillation; I10 Essential (primary) hypertension; J44.9 Chronic obstructive pulmonary disease, unspecified; F17.210 Nicotine dependence, cigarettes, uncomplicated; F10.20 Alcohol dependence, uncomplicated; Z23 Encounter for immunization; Z68.27 Body mass index [BMI] 27.0-27.9, adult
CPT/HCPCS: 10061; 71010; 74177; 80048; 80053; 81001; 82040; 82948; 83605; 83735; 84100; 84132; 85007; 85025; 85027; 85610; 85730; 86403; 87040; 87070; 87086; 87185; 87205; 87641; 90686; 90732; 93005; 94640; 94664; 96361; 96365; 96367; 96375; C9113; J1170; J2405; J2543; J3010; J3411; J3480; J7030; J7120; Q2038; Q9967